=== PATIENT | male | born 1985 | race African-American/Black ===

== ENCOUNTER 2016-10-10 10:09 | Emergency (ER) | payer OTHER ==
[2016-10-10] MEDS ORDERED: Albuterol/Ipratropium 3.0-0.5 MG/3 ML Neb Soln NEB ONE (11:22)
[2016-10-10] MEDS ORDERED: methylPREDNISolone Sodium Succinate 125 MG/2 ML SDV IM ONE (11:23)
--- NOTE | 2016-10-10 11:32 | EDM.PDOC ---
<Martha Camarillo - Last Filed: 10/10/16 11:37> ED HISTORY OF PRESENT ILLNESS - General Chief Complaint: Respiratory Problem Stated Complaint: ASTHMA ATTACK ON AND OFF Time Seen by Provider: 10/10/16 10:13 - History of Present Illness INITIAL COMMENTS - FREE TEXT/NARRATIVE: This Is Dr. Camarillo dictating an addendum note as a supervising physician on this case. Agree with history and physical as above and the patient states that his asthma is usually well-controlled but he ran out of his meds and we had them he likely would not be here. He has been out of his meds for just today by his inhalers he has not had for a while. He currently has expiratory wheezing but air movement is equal in all bearden and he has no complaints of cough fever chills vomiting chest pain. We will go ahead and give him a duo neb and Solu- Medrol and send him out with an inhaler a prednisone burst and nebulizer meds. Will advise him on reasons to return to the ED Impression: Acute asthma out of medications - Related Data Allergies/ADRs: Allergies Allergy/AdvReac Type Severity Reaction Status Date / Time No Known Allergies Allergy Verified 04/20/16 12:48 Home Meds: Home Meds Albuterol Sulfate [Albuterol Sulfate HFA] 2 puff INH Q4H PRN 07/09/14 [History] Albuterol [Proventil Neb Soln] 2.5 mg NEB ASDIRECTED PRN 05/29/15 [History] Albuterol Sulfate 2.5 mg IH Q4HR PRN #30 ml 10/10/16 [Rx] Albuterol [Proventil HFA] 6.7 gm INH Q4H #1 inhaler 10/10/16 [Rx] Fluticasone/Salmeterol [Advair 250-50 Diskus] 1 each IH BID #1 disk.w.dev [Rx] Prednisone [IMW: predniSONE] 40 mg PO WITHBREAKFAST #5 tab 10/10/16 [Rx] Course - Vital Signs Last Recorded V/S: Last Vital Signs Temp 97.8 F 10/10/16 11:07 Pulse 95 10/10/16 11:07 Resp 18 10/10/16 11:07 BP 123/85 10/10/16 11:07 Pulse Ox 93 L 10/10/16 11:07 - Orders/Labs/Meds Orders: Active Orders 24 hr Category Date Time Status RT Aerosol Therapy [RC] ASDIRECTED Care 10/10/16 11:22 Active Meds: Medications Discontinued Medications Generic Name Dose Route Start Last Admin Trade Name Freq PRN Reason Stop Dose Admin Albuterol/Ipratropium 3 ml 10/10/16 11:22 10/10/16 11:44 Duoneb 3.0-0.5 Mg/3 Ml NEB 10/10/16 11:23 3 ml ONETIME ONE Administration Methylprednisolone Sodium Succinate 125 mg 10/10/16 11:23 10/10/16 11:49 Solu-Medrol IM 10/10/16 11:24 125 mg ONETIME ONE Administration Departure - Departure Disposition: Home, Self-Care 01 Clinical Impression: Acute asthma Prescriptions: Albuterol [Proventil HFA] 6.7 gm INH Q4H #1 inhaler Albuterol Sulfate 2.5 mg IH Q4HR PRN #30 ml PRN Reason: Wheezing Fluticasone/Salmeterol [Advair 250-50 Diskus] 1 each IH BID #1 disk.w.dev Prednisone [IMW: predniSONE] 40 mg PO WITHBREAKFAST #5 tab Referrals: PCP,None [Primary Care Provider] - Forms: ED Department Discharge Additional Instructions: The following information is given to patients seen in the emergency department who are being discharged to home. This information is to outline your options for follow-up care. We provide all patients seen in our emergency department with a follow-up referral. The need for follow-up, as well as the timing and circumstances, are variable depending upon the specifics of your emergency department visit. If you don't have a primary care physician on staff, we will provide you with a referral. We always advise you to contact your personal physician following an emergency department visit to inform them of the circumstance of the visit and for follow-up with them and/or the need for any referrals to a consulting specialist. The emergency department will also refer you to a specialist when appropriate. This referral assures that you have the opportunity for follow-up care with a specialist. All of these measure are taken in an effort to provide you with optimal care, which includes your follow-up. Under all circumstances we always encourage you to contact your private physician who remains a resource for coordinating your care. When calling for follow-up care, please make the office aware that this follow-up is from your recent emergency room visit. If for any reason you are refused follow-up, please contact the [facility] Emergency Department at and asked to speak to the emergency department charge nurse. - My Orders Last 24 Hours: My Active Orders 10/10/16 11:22 RT Aerosol Therapy [RC] ASDIRECTED - Assessment/Plan Last 24 Hours: My Active Orders 10/10/16 11:22 RT Aerosol Therapy [RC] ASDIRECTED <Elvia Schneider - Last Filed: 10/10/16 12:00> ED HISTORY OF PRESENT ILLNESS - History of Present Illness INITIAL COMMENTS - FREE TEXT/NARRATIVE: History of present illness: [31 yo male with history of asthma presents to ED with sob and wheezing. He ran out his medications today. He used his last nebulizer this morning and he still felt sob. His medications include proventil, advair. He has mild congestion but denies fever, chills, sorethroat, productve cought, chest pain, palpitations or other symptoms.] Review of systems: As per history of present illness and below otherwise all systems reviewed and negative. Past medical history: As per history of present illness and as reviewed below otherwise noncontributory. Surgical history: As per history of present illness and as reviewed below otherwise noncontributory. Social history: No reported history of drug or alcohol abuse. Family history: As per history of present illness and as reviewed below otherwise noncontributory. Physical exam: General: Well developed, well nourished in NAD HEENT: Atraumatic, normocephalic, pupils reactive, negative for conjunctival pallor or scleral icterus, mucous membranes moist, throat clear, neck supple, nontender, trachea midline. Lungs: Expiratory wheezing. breath sounds equal bilaterally, chest nontender. Heart: S1S2, regular, negative for clicks, rubs, or JVD. Abdomen: Soft, nondistended, nontender. Negative for masses or hepatosplenomegaly. Negative for costovertebral tenderness. Pelvis: Stable nontender. Genitourinary: Deferred. Rectal: Deferred. Extremities: Atraumatic, negative for cords or calf pain. Neurovascular unremarkable. Neuro: Awake, alert, oriented. Cranial nerves II through XII unremarkable. Cerebellum unremarkable. Motor and sensory unremarkable throughout. Exam nonfocal. Diagnostics: [] Therapeutics: [Solu-Medrol IM 1.5, DuoNeb x1 ] Impression: [Acute exacerbation of asthma] Plan: [Rx Ventolin inhaler, albuterol solution for nebulizer, Advair, prednisone 40 mg x5 days Follow with primary care] Definitive disposition and diagnosis as appropriate pending reevaluation and review of above. Past Medical History Respiratory History: Reports: Asthma - Infectious Disease History Infectious Disease History: Reports: Chicken pox, Influenza Social & Family History - Family History Family Medical History: Noncontributory - Tobacco Use Smoking Status *Q: Former Smoker Years of Tobacco use: 10 Packs/Tins Daily: 0.5 Used Tobacco, but Quit: Yes Month Tobacco Last Used: 04/2016 Second Hand Smoke Exposure: No - Caffeine Use Caffeine Use: Reports: Coffee Caffeine Use Comment: 2 bottles - Alcohol Use Days Per Week of Alcohol Use: 1 Number of Drinks Per Day: 0 Total Drinks Per Week: 0 - Recreational Drug Use Recreational Drug Use: No ED ROS GENERAL - Review of Systems Review Of Systems: See Below (See history of present illness) ED EXAM, GENERAL - Physical Exam Exam: See Below (See history of present illness) Departure - Departure Time of Disposition: 12:00 Condition: good
[2016-10-10 12:12] VITALS: BP 132/70
== END 2016-10-10 12:09 | disposition home or self-care (01) ==
LOC: MW.ED 10:09
DX: J45.901 Unspecified asthma with (acute) exacerbation (principal); Z87.891 Personal history of nicotine dependence; Z79.899 Other long term (current) drug therapy
CPT/HCPCS: 94664; 96372; 99284; J2930

== ENCOUNTER 2017-01-20 12:01 | Emergency (ER) | payer OTHER ==
--- NOTE | 2017-01-20 12:31 | EDM.PDOC ---
ED HPI GENERAL MEDICAL PROBLEM - General Chief Complaint: Skin Complaint Stated Complaint: RIGHT HAND CHEMICAL REACTION Time Seen by Provider: 01/20/17 12:26 Source of Information: Reports: Patient History Limitations: Reports: No Limitations - History of Present Illness INITIAL COMMENTS - FREE TEXT/NARRATIVE: History of present illness: 32-year-old male presenting with acute onset of dermatitis on hands and wrists. 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 Comes today seeking antibiotics and steroids to help resolve this issue. Review of systems: As per history of present illness and below otherwise all systems reviewed and negative. Past medical history: As per history of present illness and as reviewed below otherwise noncontributory. Surgical history: As per history of present illness and as reviewed below otherwise noncontributory. Social history: No reported history of drug or alcohol abuse. Family history: As per history of present illness and as reviewed below otherwise noncontributory. Physical exam: HEENT: Atraumatic, normocephalic, pupils reactive, negative for conjunctival pallor or scleral icterus, mucous membranes moist, throat clear, neck supple, nontender, trachea midline. Lungs: Clear to auscultation, breath sounds equal bilaterally, chest nontender. Heart: S1S2, regular, negative for clicks, rubs, or JVD. Abdomen: Soft, nondistended, nontender. Negative for masses or hepatosplenomegaly. Negative for costovertebral tenderness. Pelvis: Stable nontender. Genitourinary: Deferred. Rectal: Deferred. Extremities: Atraumatic, negative for cords or calf pain. Neurovascular unremarkable. Neuro: Awake, alert, oriented. Cranial nerves II through XII unremarkable. Cerebellum unremarkable. Motor and sensory unremarkable throughout. Exam nonfocal. Skin: Bilateral hands and right wrist with plaquing eczema type lesions that are open with some amount of serous drainage with no star signs of infection. Diagnostics: [] Therapeutics: [] Impression: [Dermatitis, eczema] Plan: [Antibiotics, steroids] Definitive disposition and diagnosis as appropriate pending reevaluation and review of above. - Related Data Allergies Allergy/AdvReac Type Severity Reaction Status Date / Time No Known Allergies Allergy Verified 01/20/17 12:15 Home Meds: Home Meds Albuterol Sulfate [Albuterol Sulfate HFA] 2 puff INH Q4H PRN 07/09/14 [History] Albuterol [Proventil Neb Soln] 2.5 mg NEB ASDIRECTED PRN 05/29/15 [History] Albuterol Sulfate 2.5 mg IH Q4HR PRN #30 ml 10/10/16 [Rx] Albuterol [Proventil HFA] 6.7 gm INH Q4H #1 inhaler 10/10/16 [Rx] Fluticasone/Salmeterol [Advair 250-50 Diskus] 1 each IH BID #1 disk.w.dev [Rx] Prednisone [IMW: predniSONE] 40 mg PO WITHBREAKFAST #5 tab 10/10/16 [Rx] Cephalexin [Keflex] 500 mg PO QID #40 capsule 01/20/17 [Rx] Meloxicam 7.5 mg PO BID #30 tablet 01/20/17 [Rx] methylPREDNISolone [Medrol] 4 mg PO DAILY #21 tab.ds.pk 01/20/17 [Rx] Past Medical History HEENT History: Reports: None Cardiovascular History: Reports: None Respiratory History: Reports: Asthma Gastrointestinal History: Reports: None Genitourinary History: Reports: None Psychiatric History: Reports: None Dermatologic History: Reports: None - Infectious Disease History Infectious Disease History: Reports: Chicken Pox - Past Surgical History HEENT Surgical History: Reports: None Cardiovascular Surgical History: Reports: None Dermatological Surgical History: Reports: None Social & Family History - Family History Family Medical History: Noncontributory - Tobacco Use Smoking Status *Q: Never Smoker Years of Tobacco use: 10 Packs/Tins Daily: 0.5 Used Tobacco, but Quit: Yes Month Tobacco Last Used: 04/2016 Second Hand Smoke Exposure: No - Caffeine Use Caffeine Use: Reports: Coffee Caffeine Use Comment: 2 bottles - Alcohol Use Days Per Week of Alcohol Use: 1 Number of Drinks Per Day: 0 Total Drinks Per Week: 0 - Recreational Drug Use Recreational Drug Use: No ED ROS GENERAL - Review of Systems Review Of Systems: See Below (The history of present illness) ED EXAM, SKIN/RASH Exam: See Below (History of present illness) Course - Vital Signs Last Recorded V/S: Last Vital Signs Temp 36.4 C 01/20/17 12:15 Pulse 100 01/20/17 12:15 Resp 16 01/20/17 12:15 BP 130/59 L 01/20/17 12:15 Pulse Ox 99 01/20/17 12:15 Departure - Departure Time of Disposition: 12:28 Disposition: Home, Self-Care 01 Condition: Good Clinical Impression: Contact dermatitis, Psoriasis - Discharge Information Instructions: Contact Dermatitis, [id number], Psoriasis, [id number] Forms: ED Department Discharge Additional Instructions: The following information is given to patients seen in the emergency department who are being discharged to home. This information is to outline your options for follow-up care. We provide all patients seen in our emergency department with a follow-up referral. The need for follow-up, as well as the timing and circumstances, are variable depending upon the specifics of your emergency department visit. If you don't have a primary care physician on staff, we will provide you with a referral. We always advise you to contact your personal physician following an emergency department visit to inform them of the circumstance of the visit and for follow-up with them and/or the need for any referrals to a consulting specialist. The emergency department will also refer you to a specialist when appropriate. This referral assures that you have the opportunity for follow-up care with a specialist. All of these measure are taken in an effort to provide you with optimal care, which includes your follow-up. Under all circumstances we always encourage you to contact your private physician who remains a resource for coordinating your care. When calling for follow-up care, please make the office aware that this follow-up is from your recent emergency room visit. If for any reason you are refused follow-up, please contact the [facility] Emergency Department at and asked to speak to the emergency department charge nurse. Take medication as directed Follow-up with PCP 1-2 days Return to ED as needed as discussed [facility] [address] [place] [id number]
== END 2017-01-20 12:55 | disposition home or self-care (01) ==
LOC: MW.ED 12:01
CPT/HCPCS: 99282; 99283

== ENCOUNTER 2017-04-02 17:50 | Emergency (ER) | payer OTHER ==
[2017-04-02] MEDS ORDERED: Albuterol/Ipratropium 3.0-0.5 MG/3 ML Neb Soln NEB ONE (17:59)
[2017-04-02] MEDS ORDERED: methylPREDNISolone Sodium Succinate 125 MG/2 ML SDV IM ONE (17:59)
[2017-04-02] MEDS ORDERED: Albuterol/Ipratropium 3.0-0.5 MG/3 ML Neb Soln ONE (18:01)
--- NOTE | 2017-04-02 18:04 | EDM.PDOC ---
ED HPI GENERAL MEDICAL PROBLEM - General Chief Complaint: Respiratory Problem Stated Complaint: TROUBLE BREATH, LATONYA Time Seen by Provider: 04/02/17 17:52 - History of Present Illness INITIAL COMMENTS - FREE TEXT/NARRATIVE: HISTORY AND PHYSICAL: History of present illness: The patient is a 32-year-old male with a known history of asthma who has an inhaler and says that over the last few days with the amount of smoke and environmental pollutants in our area his asthma has flared up. He says that he also has exposures at work that can cause his asthma to flare up. He has an inhaler that he has been using more than usual and says that it was not helping so he came here for therapy. He knows that he needs the steroids and he has used them in the past. He does have a cough with this shortness of breath and wheezing but it is clear. He has not had fevers chills chest pain abdominal pain vomiting or diarrhea. He has no other upper respiratory symptoms. He has a nebulizer machine at home but is not functioning very well and sees been using his inhaler more. The patient still smokes cigarettes but has cut back and he denies drug use. The patient also states he has not been hydrating very well and has been drinking mostly caffeinated products Review of systems: As per history of present illness and below otherwise all systems reviewed and negative. Past medical history: As per history of present illness and as reviewed below otherwise noncontributory. Surgical history: As per history of present illness and as reviewed below otherwise noncontributory. Social history: No reported history of drug or alcohol abuse. Family history: As per history of present illness and as reviewed below otherwise noncontributory. Physical exam: Gen.: Well-developed well-nourished man who is speaking clearly and easily in the ED and is in no respiratory distress. He has some slight audible wheezing. O2 sat on room air on arrival was 90-93%. HEENT: Atraumatic, normocephalic, negative for conjunctival pallor or scleral icterus, mucous membranes moist, throat clear, neck supple, nontender, trachea midline. Lungs: The patient has tight air exchange but is moving air in all bearden and he has both inspiratory and expiratory wheezing, there is no sensory muscle use and no stridor, breath sounds equal bilaterally, chest nontender. Heart: S1S2, regular rhythm and slightly tachycardic rate on my evaluation Abdomen: Soft, nondistended, nontender. NABS Skin: Normal turgor no evidence of any diaphoresis Genitourinary: Deferred. Rectal: Deferred. Extremities: Atraumatic, negative for cords or calf pain. Neurovascular unremarkable. Neuro: Awake, alert, oriented. Cranial nerves II through XII unremarkable. Cerebellum unremarkable. Motor and sensory unremarkable throughout. Exam nonfocal. Diagnostics: Therapeutics: Duo neb Solu-Medrol After the DuoNeb patient is significantly improved with only minimal expiratory wheeze on the left and great air exchange and the patient overall feels better. His room air O2 sat after the nebulizer treatment is 99%. I advised the patient I will give him a Ventolin inhaler as well as a prednisone prescription and advised him to push hydration please follow-up in the clinic and avoid tobacco use. Impression: Acute asthma exacerbation improved Definitive disposition and diagnosis as appropriate pending reevaluation and review of above. - Related Data Allergies Allergy/AdvReac Type Severity Reaction Status Date / Time No Known Allergies Allergy Verified 04/02/17 17:52 Home Meds: Home Meds Albuterol [Proventil HFA] 6.7 gm INH DAILY 04/02/17 [History] Past Medical History HEENT History: Reports: None Cardiovascular History: Reports: None Respiratory History: Reports: Asthma Gastrointestinal History: Reports: None Genitourinary History: Reports: None Musculoskeletal History: Reports: None Neurological History: Reports: None Psychiatric History: Reports: None Endocrine/Metabolic History: Reports: None Hematologic History: Reports: None Immunologic History: Reports: None Oncologic (Cancer) History: Reports: None Dermatologic History: Reports: None - Past Surgical History Head Surgeries/Procedures: Reports: None HEENT Surgical History: Reports: None Cardiovascular Surgical History: Reports: None Respiratory Surgical History: Reports: None GI Surgical History: Reports: None Male Surgical History: Reports: None Endocrine Surgical History: Reports: None Neurological Surgical History: Reports: None Musculoskeletal Surgical History: Reports: None Oncologic Surgical History: Reports: None Social & Family History - Family History Family Medical History: Noncontributory - Tobacco Use Smoking Status *Q: Light Tobacco Smoker Years of Tobacco use: 3 Packs/Tins Daily: 0.2 - Caffeine Use Caffeine Use: Reports: None - Recreational Drug Use Recreational Drug Use: No ED ROS GENERAL - Review of Systems Review Of Systems: ROS reveals no pertinent complaints other than HPI. ED EXAM, GENERAL - Physical Exam Exam: See Below (See dictation) Course - Vital Signs Last Recorded V/S: Last Vital Signs Temp 36.4 C 04/02/17 17:53 Pulse 95 04/02/17 17:53 Resp 18 04/02/17 17:53 BP 143/87 H 04/02/17 17:53 Pulse Ox 95 04/02/17 17:53 - Orders/Labs/Meds Orders: Active Orders 24 hr Category Date Time Status RT Aerosol Therapy [RC] ASDIRECTED Care 04/02/17 18:00 Active Meds: Medications Discontinued Medications Generic Name Dose Route Start Last Admin Trade Name [place] PRN Reason Stop Dose Admin Albuterol/Ipratropium 3 ml 04/02/17 17:59 04/02/17 18:05 Duoneb 3.0-0.5 Mg/3 Ml NEB 04/02/17 18:00 3 ml ONETIME ONE Administration Albuterol/Ipratropium Confirm 04/02/17 18:01 04/02/17 18:06 Duoneb 3.0-0.5 Mg/3 Ml Administered 04/02/17 18:02 Not Given Dose 3 ml .ROUTE .STK-MED ONE Methylprednisolone Sodium Succinate 125 mg 04/02/17 17:59 04/02/17 18:14 Solu-Medrol IM 04/02/17 18:00 125 mg ONETIME ONE Administration Departure - Departure Time of Disposition: 18:40 Disposition: Home, Self-Care 01 Condition: Good Clinical Impression: Acute asthma exacerbation Qualifiers: Asthma severity: mild persistent Qualified Code(s): J45.31 - Mild persistent asthma with (acute) exacerbation - Discharge Information Forms: ED Department Discharge Additional Instructions: The following information is given to patients seen in the emergency department who are being discharged to home. This information is to outline your options for follow-up care. We provide all patients seen in our emergency department with a follow-up referral. The need for follow-up, as well as the timing and circumstances, are variable depending upon the specifics of your emergency department visit. If you don't have a primary care physician on staff, we will provide you with a referral. We always advise you to contact your personal physician following an emergency department visit to inform them of the circumstance of the visit and for follow-up with them and/or the need for any referrals to a consulting specialist. The emergency department will also refer you to a specialist when appropriate. This referral assures that you have the opportunity for followup care with a specialist. All of these measure are taken in an effort to provide you with optimal care, which includes your followup. Under all circumstances we always encourage you to contact your private physician who remains a resource for coordinating your care. When calling for followup care, please make the office aware that this follow-up is from your recent emergency room visit. If for any reason you are refused follow-up, please contact the [facility] emergency department at and ask to speak to the emergency department charge nurse. [facility] Primary care- Internal Medicine and Family [address] [id number] Please push hydration and avoid caffeinated products and try to stop smoking. Please fill prescriptions and use your inhaler 1-2 puffs every 6 hours for the next 2 days and then when necessary as needed. Please take prednisone as directed. Please call and follow-up with one of our clinic providers in the next few days and return to ER as needed and as discussed. Please try to expose exposure to environmental triggers - My Orders Last 24 Hours: My Active Orders 04/02/17 18:00 RT Aerosol Therapy [RC] ASDIRECTED - Assessment/Plan Last 24 Hours: My Active Orders 04/02/17 18:00 RT Aerosol Therapy [RC] ASDIRECTED
[2017-04-02 18:58] VITALS: BP 126/77
== END 2017-04-02 18:50 | disposition home or self-care (01) ==
LOC: MERGE 17:50 → MW.ED 17:50
DX: J45.31 Mild persistent asthma with (acute) exacerbation (principal); F17.210 Nicotine dependence, cigarettes, uncomplicated; Z79.899 Other long term (current) drug therapy
CPT/HCPCS: 96372; 99284; J2930; 99283

== ENCOUNTER 2017-08-05 11:03 | Emergency (ER) | payer BC, OTHER ==
[2017-08-05] MEDS ORDERED: Albuterol/Ipratropium 3.0-0.5 MG/3 ML Neb Soln NEB ONE (12:00)
[2017-08-05] MEDS ORDERED: Acetaminophen 325 MG Tab PO ONE (12:00)
--- NOTE | 2017-08-05 12:04 | EDM.PDOC ---
ED HPI GENERAL MEDICAL PROBLEM - General Chief Complaint: Respiratory Problem Stated Complaint: ASTHMA ISSUES Time Seen by Provider: 08/05/17 11:05 Source of Information: Reports: Patient History Limitations: Reports: No Limitations - History of Present Illness INITIAL COMMENTS - FREE TEXT/NARRATIVE: HISTORY AND PHYSICAL: History of present illness: Patient is a 32-year-old male who presents to the emergency room today with complaints of cough, shortness of breath, fever and chills 2-3 days. He states that the symptoms have progressively got worse and he did miss work yesterday and today due to this. He says "I don't think it's the flu because my body does not hurt and I don't feel run down". Has not received the [id number] influenza vaccine. She does have a history of asthma which he was taking a rescue inhaler for these symptoms. He states he has been out for "some time". And has not been taking anything for this. Denies any headache, chest pain, abdominal pain, nausea, vomiting or diarrhea. Has been eating and drinking appropriately. No urinary or bowel changes or complaints. Review of systems: As per history of present illness and below otherwise all systems reviewed and negative. Past medical history: As per history of present illness and as reviewed below otherwise noncontributory. Surgical history: As per history of present illness and as reviewed below otherwise noncontributory. Social history: No reported history of drug or alcohol abuse. Family history: As per history of present illness and as reviewed below otherwise noncontributory. Physical exam: General: 32-year-old -[place] male. Alert and oriented. Nontoxic appearing. Appears in no acute distress. HEENT: Atraumatic, normocephalic, pupils reactive, negative for conjunctival pallor or scleral icterus, mucous membranes moist, throat clear, neck supple, nontender, trachea midline. Lungs: Clear/diminished to auscultation, breath sounds equal bilaterally, chest nontender. Dry cough noted Heart: S1S2, regular rate and rhythm with no heart murmurs Abdomen: Soft, nondistended, nontender. Negative for masses or hepatosplenomegaly. Negative for costovertebral tenderness. Pelvis: Stable nontender. Genitourinary: Deferred. Rectal: Deferred. Extremities: Atraumatic, moves all extremities per self without difficulty or deficit. Neurovascular unremarkable. Neuro: Awake, alert, oriented. Cranial nerves II through XII unremarkable. Cerebellum unremarkable. Motor and sensory unremarkable throughout. Exam nonfocal. Influenza screen was negative. There was no significant findings on the chest x- ray and he has no wheezing. Due to history of asthma and fevers that will treat with azithromycin as an atypical pneumonia vs asthma exacerbation. Medrol Dosepak has been given as well. And a refill of his Proventil inhaler. Patient voices understanding and is agreeable to plan of care. He denies any further questions at this time. Diagnostics: Influenza, chest x-ray Therapeutics: DuoNeb, Tylenol Impression: Bronchitis Asthma exacerbation Plan: 1. Please take the antibiotic as prescribed. A Medrol Dosepak, steroid, has been prescribed as well. A refill on your inhaler has been given as well. These are waiting at [facility] for [place]. 2. Continue to drink plenty of fluids. Tylenol and/or ibuprofen as needed for pain and fever management. Plenty of rest. 3. Follow up with her primary caregiver in the next 1-2 days. Return to the ED as needed and as discussed. Definitive disposition and diagnosis as appropriate pending reevaluation and review of above. Duration: Day(s): Location: Reports: Chest - Related Data Allergies Allergy/AdvReac Type Severity Reaction Status Date / Time No Known Allergies Allergy Verified 01/20/17 12:15 Home Meds: Home Meds Albuterol Sulfate [Albuterol Sulfate HFA] 2 puff INH Q4H PRN 07/09/14 [History] Albuterol [Proventil HFA] 6.7 gm INH Q4H #1 inhaler 10/10/16 [Rx] Albuterol [Proventil HFA] 2 puff INH Q4H PRN #1 inhaler 08/05/17 [Rx] Azithromycin [IJD: Azithromycin] 250 mg PO DAILY #6 tab 08/05/17 [Rx] methylPREDNISolone [Medrol] 4 mg PO DAILY #1 tab.ds.pk 08/05/17 [Rx] Past Medical History HEENT History: Reports: None Cardiovascular History: Reports: None Respiratory History: Reports: Asthma Gastrointestinal History: Reports: None Genitourinary History: Reports: None Musculoskeletal History: Reports: None Neurological History: Reports: None Psychiatric History: Reports: None Endocrine/Metabolic History: Reports: None Hematologic History: Reports: None Immunologic History: Reports: None Oncologic (Cancer) History: Reports: None Dermatologic History: Reports: None - Infectious Disease History Infectious Disease History: Reports: Chicken Pox - Past Surgical History Head Surgeries/Procedures: Reports: None HEENT Surgical History: Reports: None Cardiovascular Surgical History: Reports: None Respiratory Surgical History: Reports: None GI Surgical History: Reports: None Male Surgical History: Reports: None Endocrine Surgical History: Reports: None Neurological Surgical History: Reports: None Musculoskeletal Surgical History: Reports: None Oncologic Surgical History: Reports: None Social & Family History - Family History Family Medical History: Noncontributory - Tobacco Use Smoking Status *Q: Never Smoker Years of Tobacco use: 3 Packs/Tins Daily: 0.2 Used Tobacco, but Quit: Yes Month Tobacco Last Used: 04/2016 Second Hand Smoke Exposure: No - Caffeine Use Caffeine Use: Reports: Coffee, Energy Drinks, Soda, Tea Caffeine Use Comment: 2 bottles - Alcohol Use Days Per Week of Alcohol Use: 1 Number of Drinks Per Day: 0 Total Drinks Per Week: 0 - Recreational Drug Use Recreational Drug Use: No ED ROS GENERAL - Review of Systems Review Of Systems: ROS reveals no pertinent complaints other than HPI. ED EXAM, GENERAL - Physical Exam Exam: See Below (See dictation) Course - Vital Signs Last Recorded V/S: Last Vital Signs Temp 99.9 F 08/05/17 11:13 Pulse 102 H 08/05/17 11:13 Resp 20 08/05/17 11:13 BP 116/74 08/05/17 11:13 Pulse Ox 95 08/05/17 11:13 - Orders/Labs/Meds Orders: Active Orders 24 hr Category Date Time Status RT Aerosol Therapy [RC] ASDIRECTED Care 08/05/17 12:00 Active Meds: Medications Discontinued Medications Generic Name Dose Route Start Last Admin Trade Name Freq PRN Reason Stop Dose Admin Acetaminophen 650 mg 08/05/17 12:00 08/05/17 12:07 Tylenol PO 08/05/17 12:01 650 mg NOW ONE Administration Albuterol/Ipratropium 3 ml 08/05/17 12:00 08/05/17 12:25 Duoneb 3.0-0.5 Mg/3 Ml NEB 08/05/17 12:01 3 ml ONETIME ONE Administration Departure - Departure Time of Disposition: 12:51 Disposition: Home, Self-Care 01 Clinical Impression: Bronchitis Acute asthma exacerbation Qualifiers: Asthma severity: mild persistent Qualified Code(s): J45.31 - Mild persistent asthma with (acute) exacerbation - Discharge Information Prescriptions: Albuterol [Proventil HFA] 2 puff INH Q4H PRN #1 inhaler PRN Reason: Dyspnea Azithromycin [IJD: Azithromycin] 250 mg PO DAILY #6 tab methylPREDNISolone [Medrol] 4 mg PO DAILY #1 tab.ds.pk Referrals: PCP,None [Primary Care Provider] - Forms: ED Department Discharge Additional Instructions: My general discharge The following information is given to patients seen in the emergency department who are being discharged to home. This information is to outline your options for follow-up care. We provide all patients seen in our emergency department with a follow-up referral. The need for follow-up, as well as the timing and circumstances, are variable depending upon the specifics of your emergency department visit. If you don't have a primary care physician on staff, we will provide you with a referral. We always advise you to contact your personal physician following an emergency department visit to inform them of the circumstance of the visit and for follow-up with them and/or the need for any referrals to a consulting specialist. The emergency department will also refer you to a specialist when appropriate. This referral assures that you have the opportunity for follow-up care with a specialist. All of these measure are taken in an effort to provide you with optimal care, which includes your follow-up. Under all circumstances we always encourage you to contact your private physician who remains a resource for coordinating your care. When calling for follow-up care, please make the office aware that this follow-up is from your recent emergency room visit. If for any reason you are refused follow-up, please contact the [facility] Emergency Department at and asked to speak to the emergency department charge nurse. [facility] [address] [place] [phone] 1. Please take the antibiotic as prescribed. A Medrol Dosepak, steroid, has been prescribed as well. A refill on your inhaler has been given as well. These are waiting at [place] [facility] for pickup. 2. Continue to drink plenty of fluids. Tylenol and/or ibuprofen as needed for pain and fever management. Plenty of rest. 3. Follow up with her primary caregiver in the next 1-2 days. Return to the ED as needed and as discussed. - My Orders Last 24 Hours: My Active Orders 08/05/17 12:00 RT Aerosol Therapy [RC] ASDIRECTED - Assessment/Plan Last 24 Hours: My Active Orders 08/05/17 12:00 RT Aerosol Therapy [RC] ASDIRECTED
--- NOTE | 2017-08-05 12:42 | CR ---
EXAMINATION: Two-view chest (PA and Lateral views). HISTORY: Shortness of breath. FINDINGS: The trachea is midline. The cardiomediastinal silhouette is within normal limits. No pulmonary infilt rates, effusions or pneumothorax. There is mild hyperinflation. Osseous structures appear unremarkable. IMPRESSION: No acute cardiopulmonary process.
[2017-08-05 18:23] VITALS: BP 126/64
== END 2017-08-05 13:07 | disposition home or self-care (01) ==
LOC: MW.ED 11:03
DX: J45.31 Mild persistent asthma with (acute) exacerbation (principal); J40 Bronchitis, not specified as acute or chronic; Z79.899 Other long term (current) drug therapy; Z87.891 Personal history of nicotine dependence
CPT/HCPCS: 71046; 87804; 94640; 99285; A9270; 99284

== ENCOUNTER 2017-09-18 07:54 | Emergency (ER) | payer BC ==
[2017-09-18] MEDS ORDERED: predniSONE 20 MG Tab PO ONE (08:14)
[2017-09-18] MEDS ORDERED: Albuterol/Ipratropium 3.0-0.5 MG/3 ML Neb Soln NEB ONE (08:14)
--- NOTE | 2017-09-18 08:18 | EDM.PDOC ---
ED HPI GENERAL MEDICAL PROBLEM - General Chief Complaint: Respiratory Problem Stated Complaint: ASTHMA Time Seen by Provider: 09/18/17 08:09 - History of Present Illness INITIAL COMMENTS - FREE TEXT/NARRATIVE: HISTORY AND PHYSICAL: History of present illness: The patient is a 32-year-old male with a known history of asthma who presents with 2 days of chest tightness and asthma-like symptoms including a dry cough and feeling like he is wheezing. The patient was seen here August 05 for similar symptoms but at that time had more cold symptoms and had a negative influenza and a negative chest x-ray. Patient did not get influenza vaccine this year. On the August 05 visit he was prescribed a Medrol Dosepak as well as an inhaler refill as he did not have an inhaler to use at home. He tells me today that he has a nebulizer machine at home and does have medication for it but is only been using it at bedtime. He has not been on any regular dosing and has not increased using the nebulizer since these symptoms have worsened. He denies that he smokes but admitted to me that he is around second hand smoke. He is eating and drinking normally and has no abdominal pain no specific area of chest pain no back pain no sore throat runny nose. He has taken Mucinex over- the-counter because he thought this might have but not because he specifically having a productive cough. He says this feels like his asthma and that he needs steroids. The patient states he did not follow-up in the clinic after his last ER visit. Review of systems: As per history of present illness and below otherwise all systems reviewed and negative. Past medical history: As per history of present illness and as reviewed below otherwise noncontributory. Surgical history: As per history of present illness and as reviewed below otherwise noncontributory. Social history: No reported history of drug or alcohol abuse. Family history: As per history of present illness and as reviewed below otherwise noncontributory. Physical exam: General: Well-developed well-nourished man who is nontoxic and vital signs of an reviewed by me. He speaking clearly and easily without breathlessness or nasal quality to voice. He does have a smell of cigarette smoke on his clothing. HEENT: Atraumatic, normocephalic, pupils reactive, negative for conjunctival pallor or scleral icterus, mucous membranes moist, throat clear, neck supple, nontender, trachea midline. Lungs: Clear to auscultation with some diminished breath sounds in the bases and some coarse breath sounds scattered but no overt wheezing or work of breathing, breath sounds equal bilaterally, chest nontender. Heart: S1S2, regular rate and rhythm no overt murmurs Abdomen: Soft, nondistended, nontender NABS Pelvis: Deferred Genitourinary: Deferred. Rectal: Deferred. Extremities: Atraumatic, negative for cords or calf pain. Neurovascular unremarkable. Neuro: Awake, alert, oriented. Cranial nerves II through XII unremarkable. Cerebellum unremarkable. Motor and sensory unremarkable throughout. Exam nonfocal. Diagnostics: None Therapeutics: Duo neb and prednisone Rpt Sat 94% Impression: Asthma exacerbation Definitive disposition and diagnosis as appropriate pending reevaluation and review of above. - Related Data Allergies Allergy/AdvReac Type Severity Reaction Status Date / Time No Known Allergies Allergy Verified 09/18/17 08:02 Home Meds: Home Meds Albuterol Sulfate [Albuterol Sulfate HFA] 2 puff NEB Q4H PRN 07/09/14 [History] Albuterol [Proventil HFA] 2 puff INH Q4H PRN #1 inhaler 08/05/17 [Rx] Past Medical History HEENT History: Reports: None Cardiovascular History: Reports: None Respiratory History: Reports: Asthma Gastrointestinal History: Reports: None Genitourinary History: Reports: None Musculoskeletal History: Reports: None Neurological History: Reports: None Psychiatric History: Reports: None Endocrine/Metabolic History: Reports: None Hematologic History: Reports: None Immunologic History: Reports: None Oncologic (Cancer) History: Reports: None Dermatologic History: Reports: None - Infectious Disease History Infectious Disease History: Reports: Chicken Pox - Past Surgical History Head Surgeries/Procedures: Reports: None HEENT Surgical History: Reports: None Cardiovascular Surgical History: Reports: None Respiratory Surgical History: Reports: None GI Surgical History: Reports: None Male Surgical History: Reports: None Endocrine Surgical History: Reports: None Neurological Surgical History: Reports: None Musculoskeletal Surgical History: Reports: None Oncologic Surgical History: Reports: None Social & Family History - Family History Family Medical History: Noncontributory - Tobacco Use Smoking Status *Q: Never Smoker Years of Tobacco use: 3 Packs/Tins Daily: 0.2 Used Tobacco, but Quit: Yes Month Tobacco Last Used: 04/2016 Second Hand Smoke Exposure: No - Caffeine Use Caffeine Use: Reports: Coffee, Energy Drinks, Soda, Tea Caffeine Use Comment: 2 bottles - Alcohol Use Days Per Week of Alcohol Use: 1 Number of Drinks Per Day: 0 Total Drinks Per Week: 0 - Recreational Drug Use Recreational Drug Use: No ED ROS GENERAL - Review of Systems Review Of Systems: ROS reveals no pertinent complaints other than HPI. ED EXAM, GENERAL - Physical Exam Exam: See Below (See dictation) Course - Vital Signs Last Recorded V/S: Last Vital Signs Temp 37.7 C 09/18/17 08:02 Pulse 103 H 09/18/17 08:02 Resp 16 09/18/17 08:02 BP 131/65 09/18/17 08:02 Pulse Ox 93 L 09/18/17 08:02 - Orders/Labs/Meds Orders: Active Orders 24 hr Category Date Time Status RT Aerosol Therapy [RC] ASDIRECTED Care 09/18/17 08:14 Active Meds: Medications Discontinued Medications Generic Name Dose Route Start Last Admin Trade Name Benigno PRN Reason Stop Dose Admin Albuterol/Ipratropium 3 ml 09/18/17 08:14 09/18/17 08:18 Duoneb 3.0-0.5 Mg/3 Ml NEB 09/18/17 08:15 3 ml ONETIME ONE Administration Prednisone 40 mg 09/18/17 08:14 09/18/17 08:18 Prednisone PO 09/18/17 08:15 40 mg ONETIME ONE Administration Departure - Departure Time of Disposition: 08:33 Disposition: Home, Self-Care 01 Condition: Good Clinical Impression: Asthma exacerbation Qualifiers: Asthma severity: mild Asthma persistence: intermittent Qualified Code(s): J45.21 - Mild intermittent asthma with (acute) exacerbation - Discharge Information Referrals: PCP,None [Primary Care Provider] - Forms: ED Department Discharge Additional Instructions: The following information is given to patients seen in the emergency department who are being discharged to home. This information is to outline your options for follow-up care. We provide all patients seen in our emergency department with a follow-up referral. The need for follow-up, as well as the timing and circumstances, are variable depending upon the specifics of your emergency department visit. If you don't have a primary care physician on staff, we will provide you with a referral. We always advise you to contact your personal physician following an emergency department visit to inform them of the circumstance of the visit and for follow-up with them and/or the need for any referrals to a consulting specialist. The emergency department will also refer you to a specialist when appropriate. This referral assures that you have the opportunity for followup care with a specialist. All of these measure are taken in an effort to provide you with optimal care, which includes your followup. Under all circumstances we always encourage you to contact your private physician who remains a resource for coordinating your care. When calling for followup care, please make the office aware that this follow-up is from your recent emergency room visit. If for any reason you are refused follow-up, please contact the [facility] emergency department at and ask to speak to the emergency department charge nurse. [facility]- [place] [address] Push hydration and use her nebulizer machine and give yourself a treatment every 6 hours for the next 2 days to help break the cycle of your asthma. Then we give yourself a nebulizer treatment as needed every 6-8 hours. Use your inhaler when you do not have access to the nebulizer machine. Please take steroids as prescribed and use [id number] medications as you choose. Please call and follow-up in our clinic as you need follow-up for your asthma. Return to ER as needed and as discussed. - My Orders Last 24 Hours: My Active Orders 09/18/17 08:14 RT Aerosol Therapy [RC] ASDIRECTED - Assessment/Plan Last 24 Hours: My Active Orders 09/18/17 08:14 RT Aerosol Therapy [RC] ASDIRECTED
[2017-09-18 08:46] VITALS: BP 117/77
== END 2017-09-18 08:42 | disposition home or self-care (01) ==
LOC: MW.ED 07:54
DX: J45.21 Mild intermittent asthma with (acute) exacerbation (principal); Z87.891 Personal history of nicotine dependence
CPT/HCPCS: 94640; 99284; A9270; 99283

== ENCOUNTER 2017-10-26 12:16 | Emergency (ER) | payer BC ==
--- NOTE | 2017-10-26 12:40 | EDM.PDOC ---
ED HPI GENERAL MEDICAL PROBLEM - General Chief Complaint: Skin Complaint Stated Complaint: R ARM PAIN Time Seen by Provider: 10/26/17 12:38 Source of Information: Reports: Patient History Limitations: Reports: No Limitations - History of Present Illness INITIAL COMMENTS - FREE TEXT/NARRATIVE: History of present illness: []Patient's had 3-4 year history of insomnia skin that are very itchy dry and cracking. He does have a history of eczema but this feels different to him. He has been seen here several times with multiple diagnoses and varying treatments. He does not follow up with primary care. Review of systems: As per history of present illness and below otherwise all systems reviewed and negative. Past medical history: As per history of present illness and as reviewed below otherwise noncontributory. Surgical history: As per history of present illness and as reviewed below otherwise noncontributory. Social history: No reported history of drug or alcohol abuse. Family history: As per history of present illness and as reviewed below otherwise noncontributory. Physical exam: General: Well developed, well nourished in NAD HEENT: Atraumatic, normocephalic, pupils reactive, negative for conjunctival pallor or scleral icterus, mucous membranes moist, throat clear, neck supple, nontender, trachea midline. Lungs: Clear to auscultation, breath sounds equal bilaterally, chest nontender. Heart: S1S2, regular, negative for clicks, rubs, or JVD. Abdomen: Soft, nondistended, nontender. Negative for masses or hepatosplenomegaly. Negative for costovertebral tenderness. Pelvis: Stable nontender. Genitourinary: Deferred. Rectal: Deferred. Extremities: Atraumatic, negative for cords or calf pain. Neurovascular unremarkable. Neuro: Awake, alert, oriented. Cranial nerves II through XII unremarkable. Cerebellum unremarkable. Motor and sensory unremarkable throughout. Exam nonfocal. Skin: 3 x 3 cm circular lesion, dark, cracked with no purulent drainage on his left inner arm, other lesions on his elbows right inner arm also present Diagnostics: [] Therapeutics: [] Impression: [] plaque psoriasis Plan: []Betamethasone twice a day and or Use [id number] emoillients to the areas. with dermatology Definitive disposition and diagnosis as appropriate pending reevaluation and review of above. - Related Data Allergies Allergy/AdvReac Type Severity Reaction Status Date / Time No Known Allergies Allergy Verified 10/26/17 12:41 Home Meds: Home Meds Albuterol [Proventil HFA] 2 puff INH Q4H PRN #1 inhaler 08/05/17 [Rx] Betamethasone/Propylene Glyc [Betamethasone Dp Aug 0.05% Oin] 45 gm TP BID #1 oint...g. 10/26/17 [Rx] Past Medical History HEENT History: Reports: None Cardiovascular History: Reports: None Respiratory History: Reports: Asthma Gastrointestinal History: Reports: None Genitourinary History: Reports: None Musculoskeletal History: Reports: None Neurological History: Reports: None Psychiatric History: Reports: None Endocrine/Metabolic History: Reports: None Hematologic History: Reports: None Immunologic History: Reports: None Oncologic (Cancer) History: Reports: None Dermatologic History: Reports: None - Infectious Disease History Infectious Disease History: Reports: Chicken Pox - Past Surgical History Head Surgeries/Procedures: Reports: None HEENT Surgical History: Reports: None Cardiovascular Surgical History: Reports: None Respiratory Surgical History: Reports: None GI Surgical History: Reports: None Male Surgical History: Reports: None Endocrine Surgical History: Reports: None Neurological Surgical History: Reports: None Musculoskeletal Surgical History: Reports: None Oncologic Surgical History: Reports: None Social & Family History - Family History Family Medical History: Noncontributory - Tobacco Use Smoking Status *Q: Never Smoker Years of Tobacco use: 3 Packs/Tins Daily: 0.2 Used Tobacco, but Quit: Yes Month/Year Tobacco Last Used: 04/2016 Second Hand Smoke Exposure: No - Caffeine Use Caffeine Use: Reports: Coffee, Energy Drinks, Soda, Tea Caffeine Use Comment: 2 bottles - Alcohol Use Days Per Week of Alcohol Use: 1 Number of Drinks Per Day: 0 Total Drinks Per Week: 0 - Recreational Drug Use Recreational Drug Use: No ED ROS GENERAL - Review of Systems Review Of Systems: See Below (See history of present illness) ED EXAM, SKIN/RASH Exam: See Below (See history of present illness) Course - Vital Signs Last Recorded V/S: Last Vital Signs Temp 97.2 F 10/26/17 12:40 Pulse 83 10/26/17 12:40 Resp 18 10/26/17 12:40 BP 137/63 10/26/17 12:40 Pulse Ox 93 L 10/26/17 12:40 Departure - Departure Time of Disposition: 12:56 Disposition: Home, Self-Care 01 Condition: Good Clinical Impression: Plaque psoriasis - Discharge Information Referrals: PCP,None [Primary Care Provider] - Forms: ED Department Discharge Additional Instructions: The following information is given to patients seen in the emergency department who are being discharged to home. This information is to outline your options for follow-up care. We provide all patients seen in our emergency department with a follow-up referral. The need for follow-up, as well as the timing and circumstances, are variable depending upon the specifics of your emergency department visit. If you don't have a primary care physician on staff, we will provide you with a referral. We always advise you to contact your personal physician following an emergency department visit to inform them of the circumstance of the visit and for follow-up with them and/or the need for any referrals to a consulting specialist. The emergency department will also refer you to a specialist when appropriate. This referral assures that you have the opportunity for follow-up care with a specialist. All of these measure are taken in an effort to provide you with optimal care, which includes your follow-up. Under all circumstances we always encourage you to contact your private physician who remains a resource for coordinating your care. When calling for follow-up care, please make the office aware that this follow-up is from your recent emergency room visit. If for any reason you are refused follow-up, please contact the [facility] Emergency Department at and asked to speak to the emergency department charge nurse. Betamethasone and use twice a day, follow-up with dermatology return if symptoms worsen or change. [facility] [address] [place] [id number]
[2017-10-26 13:09] VITALS: BP 124/76
== END 2017-10-26 13:10 | disposition home or self-care (01) ==
LOC: MW.ED 12:16
DX: L40.0 Psoriasis vulgaris (principal); Z87.891 Personal history of nicotine dependence
CPT/HCPCS: 99282

== ENCOUNTER 2017-11-23 11:13 | Emergency (ER) | payer BC ==
--- NOTE | 2017-11-23 11:25 | EDM.PDOC ---
ED HPI GENERAL MEDICAL PROBLEM - General Chief Complaint: Upper Extremity Injury/Pain Stated Complaint: SKIN RASH ON RIGHT ARM Time Seen by Provider: 11/23/17 11:22 Source of Information: Reports: Patient - History of Present Illness INITIAL COMMENTS - FREE TEXT/NARRATIVE: HISTORY AND PHYSICAL: History of present illness: [Patient has a history of axillary presents with lesion on right elbow which has secondarily been infected due to scratching mild redness and tenderness no fever nausea vomiting chills sweats No fluctuance or exudate for culture lesion is approximately 2 inches in diameter ] Review of systems: As per history of present illness and below otherwise all systems reviewed and negative. Past medical history: As per history of present illness and as reviewed below otherwise noncontributory. Surgical history: As per history of present illness and as reviewed below otherwise noncontributory. Social history: No reported history of drug or alcohol abuse. Family history: As per history of present illness and as reviewed below otherwise noncontributory. Physical exam: HEENT: Atraumatic, normocephalic, pupils reactive, negative for conjunctival pallor or scleral icterus, mucous membranes moist, throat clear, neck supple, nontender, trachea midline. Lungs: Clear to auscultation, breath sounds equal bilaterally, chest nontender. Heart: S1S2, regular, negative for clicks, rubs, or JVD. Abdomen: Soft, nondistended, nontender. Negative for masses or hepatosplenomegaly. Negative for costovertebral tenderness. Pelvis: Stable nontender. Genitourinary: Deferred. Rectal: Deferred. Extremities: Atraumatic, negative for cords or calf pain. Neurovascular unremarkable. Neuro: Awake, alert, oriented. Cranial nerves II through XII unremarkable. Cerebellum unremarkable. Motor and sensory unremarkable throughout. Exam nonfocal. Skin as per history of present illness otherwise unremarkable Diagnostics: [ clinical ] Therapeutics: [ Bactrim double strength by mouth twice a day #20 no refill Lotrisone ] Impression: [ cellulitis History of eczema ] Definitive disposition and diagnosis as appropriate pending reevaluation and review of above. - Related Data Allergies Allergy/AdvReac Type Severity Reaction Status Date / Time No Known Allergies Allergy Verified 10/26/17 12:41 Home Meds: Home Meds Albuterol [Proventil HFA] 2 puff INH Q4H PRN #1 inhaler 08/05/17 [Rx] Betamethasone/Propylene Glyc [Betamethasone Dp Aug 0.05% Oin] 45 gm TP BID #1 oint...g. 10/26/17 [Rx] Past Medical History HEENT History: Reports: None Cardiovascular History: Reports: None Respiratory History: Reports: Asthma Gastrointestinal History: Reports: None Genitourinary History: Reports: None Musculoskeletal History: Reports: None Neurological History: Reports: None Psychiatric History: Reports: None Endocrine/Metabolic History: Reports: None Hematologic History: Reports: None Immunologic History: Reports: None Oncologic (Cancer) History: Reports: None Dermatologic History: Reports: None - Infectious Disease History Infectious Disease History: Reports: Chicken Pox - Past Surgical History Head Surgeries/Procedures: Reports: None HEENT Surgical History: Reports: None Cardiovascular Surgical History: Reports: None Respiratory Surgical History: Reports: None GI Surgical History: Reports: None Male Surgical History: Reports: None Endocrine Surgical History: Reports: None Neurological Surgical History: Reports: None Musculoskeletal Surgical History: Reports: None Oncologic Surgical History: Reports: None Social & Family History - Family History Family Medical History: Noncontributory - Tobacco Use Smoking Status *Q: Never Smoker Years of Tobacco use: 3 Packs/Tins Daily: 0.2 Used Tobacco, but Quit: Yes Month/Year Tobacco Last Used: 04/2016 Second Hand Smoke Exposure: No - Caffeine Use Caffeine Use: Reports: Coffee, Energy Drinks, Soda, Tea Caffeine Use Comment: 2 bottles - Alcohol Use Days Per Week of Alcohol Use: 1 Number of Drinks Per Day: 0 Total Drinks Per Week: 0 - Recreational Drug Use Recreational Drug Use: No Review of Systems - Review of Systems Review Of Systems: ROS reveals no pertinent complaints other than HPI. ED EXAM, GENERAL - Physical Exam Exam: See Below Departure - Departure Time of Disposition: 11:23 Disposition: Home, Self-Care 01 Condition: Good Clinical Impression: Cellulitis - Discharge Information Referrals: PCP,None [Primary Care Provider] - Forms: ED Department Discharge Additional Instructions: Medication as prescribed Return if symptoms persist or worsen or new concerning symptoms develoSuch as fever nausea vomiting chills sweats despite antibiotic follow-up with primary care [facility] [address] [place] [id number] The following information is given to patients seen in the emergency department who are being discharged to home. This information is to outline your options for follow-up care. We provide all patients seen in our emergency department with a follow-up referral. The need for follow-up, as well as the timing and circumstances, are variable depending upon the specifics of your emergency department visit. If you don't have a primary care physician on staff, we will provide you with a referral. We always advise you to contact your personal physician following an emergency department visit to inform them of the circumstance of the visit and for follow-up with them and/or the need for any referrals to a consulting specialist. The emergency department will also refer you to a specialist when appropriate. This referral assures that you have the opportunity for follow-up care with a specialist. All of these measure are taken in an effort to provide you with optimal care, which includes your follow-up. Under all circumstances we always encourage you to contact your private physician who remains a resource for coordinating your care. When calling for follow-up care, please make the office aware that this follow-up is from your recent emergency room visit. If for any reason you are refused follow-up, please contact the [facility] emergency department at and asked to speak to the emergency department charge nurse.
[2017-11-23 11:32] VITALS: BP 133/80
== END 2017-11-23 11:41 | disposition home or self-care (01) ==
LOC: MW.ED 11:13
DX: L03.113 Cellulitis of right upper limb (principal)
CPT/HCPCS: 99282

== ENCOUNTER 2017-12-07 23:23 | Emergency (ER) | payer BC ==
[2017-12-07] MEDS ORDERED: Albuterol/Ipratropium 3.0-0.5 MG/3 ML Neb Soln NEB ONE (23:35)
[2017-12-07] MEDS ORDERED: methylPREDNISolone Sodium Succinate 125 MG/2 ML SDV IM ONE (23:41)
--- NOTE | 2017-12-08 00:03 | EDM.PDOC ---
ED HPI GENERAL MEDICAL PROBLEM - General Chief Complaint: Respiratory Problem Stated Complaint: PT HAS DIFFICULTY BREATHING Time Seen by Provider: 12/08/17 00:00 - History of Present Illness INITIAL COMMENTS - FREE TEXT/NARRATIVE: HISTORY AND PHYSICAL: History of present illness: Patient 32-year-old male history of asthma presenting concern of shortness of breath and wheezing he denies fever chills nausea vomiting or other complaints Review of systems: As per history of present illness and below otherwise all systems reviewed and negative. Past medical history: As per history of present illness and as reviewed below otherwise noncontributory. Surgical history: As per history of present illness and as reviewed below otherwise noncontributory. Social history: No reported history of drug or alcohol abuse. Family history: As per history of present illness and as reviewed below otherwise noncontributory. Physical exam: HEENT: Atraumatic, normocephalic, pupils reactive, negative for conjunctival pallor or scleral icterus, mucous membranes moist, throat clear, neck supple, nontender, trachea midline. Lungs: Scattered and extra wheezing no rhonchi no crackles breath sounds equal bilaterally, chest nontender. Heart: S1S2, regular, negative for clicks, rubs, or JVD. Abdomen: Soft, nondistended, nontender. Negative for masses or hepatosplenomegaly. Negative for costovertebral tenderness. Pelvis: Stable nontender. Genitourinary: Deferred. Rectal: Deferred. Extremities: Atraumatic, negative for cords or calf pain. Neurovascular unremarkable. Neuro: Awake, alert, oriented. Cranial nerves II through XII unremarkable. Cerebellum unremarkable. Motor and sensory unremarkable throughout. Exam nonfocal. Diagnostics: Chest x-ray Therapeutics: Albuterol ipratropium nebulizer Solu-Medrol 125 mg IM Impression: #1 acute asthmatic exacerbation Definitive disposition and diagnosis as appropriate pending reevaluation and review of above. chest Pain Score (Numeric/FACES): 4 - Related Data Allergies Allergy/AdvReac Type Severity Reaction Status Date / Time No Known Allergies Allergy Verified 12/07/17 23:34 Home Meds: Home Meds Albuterol [Proventil HFA] 2 puff INH Q4H PRN #1 inhaler 08/05/17 [Rx] Past Medical History - Past Health History Medical/Surgical History: Denies Medical/Surgical History HEENT History: Reports: None Cardiovascular History: Reports: None Respiratory History: Reports: Asthma Gastrointestinal History: Reports: None Genitourinary History: Reports: None Musculoskeletal History: Reports: None Neurological History: Reports: None Psychiatric History: Reports: None Endocrine/Metabolic History: Reports: None Hematologic History: Reports: None Immunologic History: Reports: None Oncologic (Cancer) History: Reports: None Dermatologic History: Reports: None - Infectious Disease History Infectious Disease History: Reports: Chicken Pox - Past Surgical History Head Surgeries/Procedures: Reports: None HEENT Surgical History: Reports: None Cardiovascular Surgical History: Reports: None Respiratory Surgical History: Reports: None GI Surgical History: Reports: None Male Surgical History: Reports: None Endocrine Surgical History: Reports: None Neurological Surgical History: Reports: None Musculoskeletal Surgical History: Reports: None Oncologic Surgical History: Reports: None Social & Family History - Family History Family Medical History: Noncontributory - Tobacco Use Smoking Status *Q: Former Smoker Used Tobacco, but Quit: Yes Month/Year Tobacco Last Used: 10 - Caffeine Use Caffeine Use: Reports: Coffee, Energy Drinks, Soda, Tea Caffeine Use Comment: 2 bottles - Recreational Drug Use Recreational Drug Use: No ED ROS GENERAL - Review of Systems Review Of Systems: ROS reveals no pertinent complaints other than HPI. ED EXAM, GENERAL - Physical Exam Exam: See Below (See dictation) Course - Vital Signs Last Recorded V/S: Last Vital Signs Temp 36.6 C 12/07/17 23:23 Pulse 98 12/07/17 23:23 Resp 24 H 12/07/17 23:23 BP 132/73 12/07/17 23:23 Pulse Ox 91 L 12/07/17 23:23 - Orders/Labs/Meds Orders: Active Orders 24 hr Category Date Time Status RT Aerosol Therapy [RC] ASDIRECTED Care 12/07/17 23:35 Active Chest 1V Frontal [CR] Stat Exams 12/07/17 23:42 Ordered Meds: Medications Discontinued Medications Generic Name Dose Route Start Last Admin Trade Name Freq PRN Reason Stop Dose Admin Albuterol/Ipratropium 3 ml 12/07/17 23:35 12/07/17 23:50 Duoneb 3.0-0.5 Mg/3 Ml NEB 12/07/17 23:36 3 ml ONETIME ONE Administration Methylprednisolone Sodium Succinate 125 mg 12/07/17 23:41 12/07/17 23:53 Solu-Medrol IM 12/07/17 23:42 125 mg ONETIME ONE Administration Departure - Departure Time of Disposition: 00:02 Disposition: Home, Self-Care 01 Condition: Good Clinical Impression: Acute asthma - Discharge Information Additional Instructions: The following information is given to patients seen in the emergency department who are being discharged to home. This information is to outline your options for follow-up care. We provide all patients seen in our emergency department with a follow-up referral. The need for follow-up, as well as the timing and circumstances, are variable depending upon the specifics of your emergency department visit. If you don't have a primary care physician on staff, we will provide you with a referral. We always advise you to contact your personal physician following an emergency department visit to inform them of the circumstance of the visit and for follow-up with them and/or the need for any referrals to a consulting specialist. The emergency department will also refer you to a specialist when appropriate. This referral assures that you have the opportunity for followup care with a specialist. All of these measure are taken in an effort to provide you with optimal care, which includes your followup. Under all circumstances we always encourage you to contact your private physician who remains a resource for coordinating your care. When calling for followup care, please make the office aware that this follow-up is from your recent emergency room visit. If for any reason you are refused follow-up, please contact the [facility] emergency department at and asked to speak to the emergency department charge nurse. Medrol as prescribed continue albuterol inhaler as directed follow-up private medical doctor 1-2 days return as needed as discussed - My Orders Last 24 Hours: My Active Orders 12/07/17 23:35 RT Aerosol Therapy [RC] ASDIRECTED 12/07/17 23:42 Chest 1V Frontal [CR] Stat - Assessment/Plan Last 24 Hours: My Active Orders 12/07/17 23:35 RT Aerosol Therapy [RC] ASDIRECTED 12/07/17 23:42 Chest 1V Frontal [CR] Stat
[2017-12-08 00:55] VITALS: BP 126/70
--- NOTE | 2017-12-08 16:19 | CR ---
EXAM DATE: 12/07/17 PATIENT'S AGE: 32 Patient: LISA ESPITIA Facility: [place], [place] Site . Site : 1985 Study: XRay Chest [id number]/[id number] 12:22:11 AM Ordering Physician: Doctor Torres Final Report: INDICATION: Chest pain, shortness of breath TECHNIQUE: Chest radiograph 1 view COMPARISON: 08/05/17 FINDINGS: Mediastinum: The heart silhouette is normal in size and morphology. The mediastinum is normal in appearance. Lungs: Both lungs are unremarkable in appearance. No sign of pleural effusion seen. No pneumothorax is identified. Bones and soft tissue: Unremarkable for age. IMPRESSION: 1. No acute cardiopulmonary disease is seen. Dictated by: Yves Chawla MD @ 12/08/2017 00:26:11 (Electronic Signature) Report Signed by Proxy. MAGDALENE
== END 2017-12-08 00:50 | disposition home or self-care (01) ==
LOC: MW.ED 23:23
DX: J45.901 Unspecified asthma with (acute) exacerbation (principal); Z87.891 Personal history of nicotine dependence
CPT/HCPCS: 71045; 94640; 96372; 99285; J2930

== ENCOUNTER 2018-01-29 12:06 | Emergency (ER) | payer BC ==
--- NOTE | 2018-01-29 12:44 | EDM.PDOC ---
ED HPI GENERAL MEDICAL PROBLEM - General Chief Complaint: Respiratory Problem Stated Complaint: ASTHMA Time Seen by Provider: 01/29/18 12:44 Source of Information: Reports: Patient History Limitations: Reports: No Limitations - History of Present Illness INITIAL COMMENTS - FREE TEXT/NARRATIVE: HISTORY AND PHYSICAL: History of present illness: Patient is a 33-year-old male who presents to the emergency room with request for medication refill. He does have a history of asthma and uses a Proventil inhaler at least once daily for management of this. He recently ran out of his inhaler and has been using some DuoNeb ampules, as he had some left over from previous illness. He denies any fever, chills, chest pain, shortness of breath or cough. Denies any abdominal pain, nausea, vomiting, diarrhea or constipation. Review of systems: As per history of present illness and below otherwise all systems reviewed and negative. Past medical history: As per history of present illness and as reviewed below otherwise noncontributory. Surgical history: As per history of present illness and as reviewed below otherwise noncontributory. Social history: No reported history of drug or alcohol abuse. Family history: As per history of present illness and as reviewed below otherwise noncontributory. Physical exam: General: Well-developed and well-nourished 33-year-old -Russian male. Alert and oriented. Nontoxic appearing and in no acute distress. HEENT: Atraumatic, normocephalic, pupils equal and reactive bilaterally, negative for conjunctival pallor or scleral icterus, mucous membranes moist, throat clear, neck supple, nontender, trachea midline. No drooling or trismus noted. No meningeal signs Lungs: Fine expiratory wheezing noted to bilateral posterior bases otherwise clear to auscultation, breath sounds equal bilaterally, chest nontender. Heart: S1S2, regular rate and rhythm without overt murmur Abdomen: Soft, nondistended, nontender. Negative for masses or hepatosplenomegaly. Negative for costovertebral tenderness. Pelvis: Stable nontender. Genitourinary: Deferred. Rectal: Deferred. Skin: Intact, warm, dry. No lesions or rashes noted. Extremities: Atraumatic, negative for cords or calf pain. Neurovascular unremarkable. Neuro: Awake, alert, oriented. Cranial nerves II through XII unremarkable. Cerebellum unremarkable. Motor and sensory unremarkable throughout. Exam nonfocal. Notes: I did offer the patient a DuoNeb while here, he declines. He states he would like his medication refilled along with a prescription for Medrol Dosepak. I'm comfortable with this. I did encourage him to follow-up with his primary care provider. He is agreeable to plan of care. He denies any further restaurant or concerns at this time. Diagnostics: Declines Therapeutics: Declines Impression: Encounter for medication refill Asthma Plan: 1. Please take your medications as directed. 2. Follow-up with your primary care provider in the next 1-2 days. Return to the ED as needed and as discussed. Definitive disposition and diagnosis as appropriate pending reevaluation and review of above. Chest Pain Score (Numeric/FACES): 2 - Related Data Allergies Allergy/AdvReac Type Severity Reaction Status Date / Time No Known Allergies Allergy Verified 01/29/18 12:44 Home Meds: Home Meds Albuterol [Proventil HFA] 2 puff INH Q4H PRN #1 inhaler 08/05/17 [Rx] Past Medical History - Past Health History Medical/Surgical History: Denies Medical/Surgical History HEENT History: Reports: None Cardiovascular History: Reports: None Respiratory History: Reports: Asthma Gastrointestinal History: Reports: None Genitourinary History: Reports: None Musculoskeletal History: Reports: None Neurological History: Reports: None Psychiatric History: Reports: None Endocrine/Metabolic History: Reports: None Hematologic History: Reports: None Immunologic History: Reports: None Oncologic (Cancer) History: Reports: None Dermatologic History: Reports: None - Infectious Disease History Infectious Disease History: Reports: Chicken Pox - Past Surgical History Head Surgeries/Procedures: Reports: None HEENT Surgical History: Reports: None Cardiovascular Surgical History: Reports: None Respiratory Surgical History: Reports: None GI Surgical History: Reports: None Male Surgical History: Reports: None Endocrine Surgical History: Reports: None Neurological Surgical History: Reports: None Musculoskeletal Surgical History: Reports: None Oncologic Surgical History: Reports: None Social & Family History - Family History Family Medical History: Noncontributory - Caffeine Use Caffeine Use: Reports: Coffee, Energy Drinks, Soda, Tea Caffeine Use Comment: 2 bottles ED ROS GENERAL - Review of Systems Review Of Systems: ROS reveals no pertinent complaints other than HPI. ED EXAM, GENERAL - Physical Exam Exam: See Below (See dictation) Course - Vital Signs Last Recorded V/S: Last Vital Signs Temp 97.3 F 01/29/18 12:45 Pulse 96 01/29/18 12:45 Resp 18 01/29/18 12:45 BP 115/86 01/29/18 12:45 Pulse Ox 91 L 01/29/18 12:45 Departure - Departure Time of Disposition: 13:05 Disposition: Home, Self-Care 01 Clinical Impression: Encounter for medication refill Asthma Qualifiers: Asthma severity: moderate Asthma persistence: persistent Asthma complication type: unspecified Qualified Code(s): J45.40 - Moderate persistent asthma, uncomplicated - Discharge Information Referrals: PCP,None [Primary Care Provider] - Forms: ED Department Discharge Additional Instructions: The following information is given to patients seen in the emergency department who are being discharged to home. This information is to outline your options for follow-up care. We provide all patients seen in our emergency department with a follow-up referral. The need for follow-up, as well as the timing and circumstances, are variable depending upon the specifics of your emergency department visit. If you don't have a primary care physician on staff, we will provide you with a referral. We always advise you to contact your personal physician following an emergency department visit to inform them of the circumstance of the visit and for follow-up with them and/or the need for any referrals to a consulting specialist. The emergency department will also refer you to a specialist when appropriate. This referral assures that you have the opportunity for follow-up care with a specialist. All of these measure are taken in an effort to provide you with optimal care, which includes your follow-up. Under all circumstances we always encourage you to contact your private physician who remains a resource for coordinating your care. When calling for follow-up care, please make the office aware that this follow-up is from your recent emergency room visit. If for any reason you are refused follow-up, please contact the [facility] Emergency Department at and asked to speak to the emergency department charge nurse. [facility] [address] [place] [id number] 1. Please take your medications as directed. 2. Follow-up with your primary care provider in the next 1-2 days. Return to the ED as needed and as discussed.
[2018-01-29 13:33] VITALS: BP 122/86
== END 2018-01-29 13:26 | disposition home or self-care (01) ==
LOC: MW.ED 12:06
DX: J45.40 Moderate persistent asthma, uncomplicated (principal); Z76.0 Encounter for issue of repeat prescription
CPT/HCPCS: 99281

== ENCOUNTER 2018-10-20 19:22 | Emergency (ER) | payer SELFPAY ==
--- NOTE | 2018-10-20 20:16 | EDM.PDOC ---
ED HPI GENERAL MEDICAL PROBLEM - General Chief Complaint: Skin Complaint Stated Complaint: ECZEMA Time Seen by Provider: 10/20/18 20:06 - History of Present Illness INITIAL COMMENTS - FREE TEXT/NARRATIVE: HISTORY AND PHYSICAL: History of present illness: The patient is a 33-year-old male who lives in [place] and is here working and presents with a flare of his eczema and he does not have his cream to treat it. Patient says he has a steroid cream at home that he uses when he gets flareups and his current flareup on his lower extremities is typical of his eczema. He is not sure if it got irritated triggering the flareup and he has no systemic complaints of fever chills chest pain or shortness of breath. Patient also has a history of asthma but says that his asthma is not flaring up currently. He also tells me that he oftentimes will get some low-dose prednisone to help with this. He has no other complaints and is only here because he does not have his steroid cream. Review of systems: As per history of present illness and below otherwise all systems reviewed and negative. Past medical history: As per history of present illness and as reviewed below otherwise noncontributory. Surgical history: As per history of present illness and as reviewed below otherwise noncontributory. Social history: No reported history of drug or alcohol abuse. Family history: As per history of present illness and as reviewed below otherwise noncontributory. Physical exam: General: Well-developed well-nourished man who is nontoxic and speaks clearly in the ED and vital signs are noted HEENT: Atraumatic, normocephalic, negative for conjunctival pallor or scleral icterus, mucous membranes moist, throat clear, neck supple, nontender, trachea midline. Lungs: Clear to auscultation with a slight wheeze at the left base but no worker breathing or stridor, breath sounds equal bilaterally, chest nontender. Heart: S1S2, regular rate and rhythm no overt murmurs Abdomen: Soft, nondistended, nontender. NABS Pelvis: Deferred Genitourinary: Deferred. Rectal: Deferred. Extremities: Atraumatic, negative for cords or calf pain. Neurovascular unremarkable. Neuro: Awake, alert, oriented. Cranial nerves II through XII unremarkable. Cerebellum unremarkable. Motor and sensory unremarkable throughout. Exam nonfocal. Skin: On the lower extremities there are a few scattered patchy areas of dry scaly skin the most noteworthy are behind the lower legs bilaterally which yield large patches of dry scaly skin which is very irritated but there is no evidence of any erythema or swelling. Diagnostics: [] Therapeutics: [] The patient is unsure of the name of the steroid cream that he normally uses and thinks it might be triamcinolone which I prescribed for him as well as a Medrol Dosepak Impression: Eczema flareup Definitive disposition and diagnosis as appropriate pending reevaluation and review of above. Generalized Pain Score (Numeric/FACES): 7 - Related Data Allergies Allergy/AdvReac Type Severity Reaction Status Date / Time No Known Allergies Allergy Verified 10/20/18 19:59 Home Meds: Home Meds Albuterol Sulfate [Proair Hfa] 2 puff INH ASDIRECTED PRN 10/20/18 [History] Past Medical History - Past Health History Medical/Surgical History: Denies Medical/Surgical History HEENT History: Reports: None Cardiovascular History: Reports: None Respiratory History: Reports: Asthma Gastrointestinal History: Reports: None Genitourinary History: Reports: None Musculoskeletal History: Reports: None Neurological History: Reports: None Psychiatric History: Reports: None Endocrine/Metabolic History: Reports: None Hematologic History: Reports: None Immunologic History: Reports: None Oncologic (Cancer) History: Reports: None Dermatologic History: Reports: Eczema - Infectious Disease History Infectious Disease History: Reports: Chicken Pox - Past Surgical History Head Surgeries/Procedures: Reports: None HEENT Surgical History: Reports: None Cardiovascular Surgical History: Reports: None Respiratory Surgical History: Reports: None GI Surgical History: Reports: None Male Surgical History: Reports: None Endocrine Surgical History: Reports: None Neurological Surgical History: Reports: None Musculoskeletal Surgical History: Reports: None Oncologic Surgical History: Reports: None Social & Family History - Family History Family Medical History: Noncontributory - Tobacco Use Smoking Status *Q: Current Some Day Smoker Years of Tobacco use: 5 Packs/Tins Daily: 0 - Caffeine Use Caffeine Use: Reports: Energy Drinks Caffeine Use Comment: 2 bottles - Recreational Drug Use Recreational Drug Use: No ED ROS GENERAL - Review of Systems Review Of Systems: ROS reveals no pertinent complaints other than HPI. ED EXAM, SKIN/RASH Exam: See Below (See dictation) Course - Vital Signs Last Recorded V/S: Last Vital Signs Temp 36.6 C 10/20/18 19:58 Pulse 87 10/20/18 19:58 Resp 18 10/20/18 19:58 BP Pulse Ox Departure - Departure Time of Disposition: 20:15 Disposition: Home, Self-Care 01 Condition: Good Clinical Impression: Eczema Qualifiers: Eczema type: unspecified Qualified Code(s): L30.9 - Dermatitis, unspecified - Discharge Information Additional Instructions: The following information is given to patients seen in the emergency department who are being discharged to home. This information is to outline your options for follow-up care. We provide all patients seen in our emergency department with a follow-up referral. The need for follow-up, as well as the timing and circumstances, are variable depending upon the specifics of your emergency department visit. If you don't have a primary care physician on staff, we will provide you with a referral. We always advise you to contact your personal physician following an emergency department visit to inform them of the circumstance of the visit and for follow-up with them and/or the need for any referrals to a consulting specialist. The emergency department will also refer you to a specialist when appropriate. This referral assures that you have the opportunity for followup care with a specialist. All of these measure are taken in an effort to provide you with optimal care, which includes your followup. Under all circumstances we always encourage you to contact your private physician who remains a resource for coordinating your care. When calling for followup care, please make the office aware that this follow-up is from your recent emergency room visit. If for any reason you are refused follow-up, please contact the [facility] emergency department at and ask to speak to the emergency department charge nurse. [facility]- Internal Medicine and Family [address] [address] Please fill your prescription for the steroid cream as well as a Medrol Dosepak and use as directed. Try to keep your areas of eczema clean and dry and avoid further friction and irritation. Call and schedule a follow-up appointment in our clinic with one of our providers or with your provider at home in [place] and return to ER as needed and as discussed
== END 2018-10-20 20:22 | disposition home or self-care (01) ==
LOC: MW.ED 19:22
DX: L30.9 Dermatitis, unspecified (principal); J45.909 Unspecified asthma, uncomplicated
CPT/HCPCS: 99282

== ENCOUNTER 2018-12-03 12:33 | Emergency (ER) | payer SELFPAY ==
--- NOTE | 2018-12-03 12:37 | EDM.PDOC ---
ED HPI GENERAL MEDICAL PROBLEM - General Stated Complaint: SKIN RASH Time Seen by Provider: 12/03/18 12:36 Source of Information: Reports: Patient History Limitations: Reports: No Limitations - History of Present Illness INITIAL COMMENTS - FREE TEXT/NARRATIVE: HISTORY AND PHYSICAL: History of present illness: Patient is a 33-year-old male who presents to the emergency room with complaints of irritation to his eczema. He was evaluated in the emergency room several times previous for refill of his triamcinolone cream. He states that the bottle he received was a very small amount and therefore has not been able to use this medication during flareups. The one area he is concerned about is behind his left posterior calf. He states he has been scratching so hard he is concerned as he does have "bumps of pus". Review of systems: As per history of present illness and below otherwise all systems reviewed and negative. Past medical history: As per history of present illness and as reviewed below otherwise noncontributory. Surgical history: As per history of present illness and as reviewed below otherwise noncontributory. Social history: See social history for further information Family history: As per history of present illness and as reviewed below otherwise noncontributory. Physical exam: General: HEENT: Atraumatic, normocephalic, pupils equal and reactive bilaterally, negative for conjunctival pallor or scleral icterus, mucous membranes moist, trachea midline. No drooling or trismus noted. No meningeal signs. No hot potato voice noted. Lungs: Clear to auscultation, breath sounds equal bilaterally, chest nontender. Heart: S1S2, regular rate and rhythm without overt murmur Abdomen: Soft, nondistended, nontender. Skin: To the left lower extremity to the posterior proximal upper calf, has a patch of excessively dry scaly skin which appears irritated. No surrounding erythema or soft tissue swelling. Otherwise skin is intact, warm, dry. No lesions or rashes noted. Extremities: Atraumatic, moves all extremities per self without difficulty or deficits, negative for cords or calf pain. Neurovascular unremarkable. Neuro: Awake, alert, oriented. Cranial nerves II through XII unremarkable. Cerebellum unremarkable. Motor and sensory unremarkable throughout. Exam nonfocal. Notes: Encourage patient to follow-up or establish care with a primary care provider as he has been seen in our emergency room a few times previous for his medication refill. He states that the triamcinolone cream and Medrol Dosepak that he was prescribed previously had worked well for him. I we will refill this time. Supportive care measures were reviewed and discussed. Voices understanding and is agreeable to plan of care. Denies any further questions or concerns at this time. Diagnostics: None Therapeutics: None Prescription: Triamcinolone Medrol Dosepak Impression: Eczema Encounter for medication refill Plan: 1. Keep skin clean and dry. 2. Use the medications as directed. 3. Continue to monitor for signs of improvement. 4. Establish care with a primary care provider for further evaluation and management of your chronic eczema. 5. Return to the ED as needed and as discussed. Definitive disposition and diagnosis as appropriate pending reevaluation and review of above. Left Lower Leg Pain Score (Numeric/FACES): 5 - Related Data Allergies Allergy/AdvReac Type Severity Reaction Status Date / Time No Known Allergies Allergy Verified 12/03/18 12:44 Home Meds: Home Meds Albuterol Sulfate [Proair Hfa] 2 puff INH ASDIRECTED PRN 10/20/18 [History] Past Medical History - Past Health History Medical/Surgical History: Denies Medical/Surgical History HEENT History: Reports: None Cardiovascular History: Reports: None Respiratory History: Reports: Asthma Gastrointestinal History: Reports: None Genitourinary History: Reports: None Musculoskeletal History: Reports: None Neurological History: Reports: None Psychiatric History: Reports: None Endocrine/Metabolic History: Reports: None Hematologic History: Reports: None Immunologic History: Reports: None Oncologic (Cancer) History: Reports: None Dermatologic History: Reports: Eczema - Infectious Disease History Infectious Disease History: Reports: Chicken Pox - Past Surgical History Head Surgeries/Procedures: Reports: None HEENT Surgical History: Reports: None Cardiovascular Surgical History: Reports: None Respiratory Surgical History: Reports: None GI Surgical History: Reports: None Male Surgical History: Reports: None Endocrine Surgical History: Reports: None Neurological Surgical History: Reports: None Musculoskeletal Surgical History: Reports: None Oncologic Surgical History: Reports: None Social & Family History - Family History Family Medical History: Noncontributory - Caffeine Use Caffeine Use: Reports: Energy Drinks Caffeine Use Comment: 2 bottles ED ROS GENERAL - Review of Systems Review Of Systems: ROS reveals no pertinent complaints other than HPI. ED EXAM, SKIN/RASH Exam: See Below (See dictation) Course - Vital Signs Last Recorded V/S: Last Vital Signs Temp 96.5 F 12/03/18 12:45 Pulse 84 12/03/18 13:04 Resp 14 12/03/18 13:04 BP 131/59 L 12/03/18 13:04 Pulse Ox 96 12/03/18 13:04 Departure - Departure Time of Disposition: 12:54 Disposition: Home, Self-Care 01 Clinical Impression: Medication refill Eczema Qualifiers: Eczema type: unspecified Qualified Code(s): L30.9 - Dermatitis, unspecified - Discharge Information Instructions: Eczema Referrals: PCP,None [Primary Care Provider] - Forms: ED Department Discharge Additional Instructions: The following information is given to patients seen in the emergency department who are being discharged to home. This information is to outline your options for follow-up care. We provide all patients seen in our emergency department with a follow-up referral. The need for follow-up, as well as the timing and circumstances, are variable depending upon the specifics of your emergency department visit. If you don't have a primary care physician on staff, we will provide you with a referral. We always advise you to contact your personal physician following an emergency department visit to inform them of the circumstance of the visit and for follow-up with them and/or the need for any referrals to a consulting specialist. The emergency department will also refer you to a specialist when appropriate. This referral assures that you have the opportunity for follow-up care with a specialist. All of these measure are taken in an effort to provide you with optimal care, which includes your follow-up. Under all circumstances we always encourage you to contact your private physician who remains a resource for coordinating your care. When calling for follow-up care, please make the office aware that this follow-up is from your recent emergency room visit. If for any reason you are refused follow-up, please contact the [facility] Emergency Department at and asked to speak to the emergency department charge nurse. [facility] [address] [place] [address] [id number] [address] [address] 1. Keep skin clean and dry. 2. Use the medications as directed. 3. Continue to monitor for signs of improvement. 4. Establish care with a primary care provider for further evaluation and management of your chronic eczema. 5. Return to the ED as needed and as discussed.
[2018-12-03 13:04] VITALS: BP 131/59
== END 2018-12-03 13:04 | disposition home or self-care (01) ==
LOC: MW.ED 12:33
DX: L30.9 Dermatitis, unspecified (principal); Z76.0 Encounter for issue of repeat prescription
CPT/HCPCS: 99282

== ENCOUNTER 2019-01-20 13:35 | Emergency (ER) | payer SELFPAY ==
--- NOTE | 2019-01-20 14:17 | EDM.PDOC ---
ED HPI GENERAL MEDICAL PROBLEM - General Chief Complaint: Respiratory Problem Stated Complaint: ASTHMA ECZEMA Time Seen by Provider: 01/20/19 13:39 Source of Information: Reports: Patient History Limitations: Reports: No Limitations - History of Present Illness INITIAL COMMENTS - FREE TEXT/NARRATIVE: HISTORY AND PHYSICAL: History of present illness: Patient is a 34-year-old male presents to the ED today with concern of an eczema outbreak. Patient states he has frequent outbreaks and has recently moved [place] so has not established a primary care provider in [place] yet. Patient states he's been working the past 2-3 weeks without a break from work which is when the symptoms had started and has not been able to get in for an appointment with PCP. Patient states he is in the process of establishing a primary care in [place] and is working on getting his medical records transferred over. Patient states he has been scratching the area of eczema outbreak on his right thigh which has begun to turn a little bit red on his right leg. Patient does state he has had passed cellulitis infections from scratching too much. Patient states in the past for his breakouts he uses triamcinolone ointment, and a brief oral steroid which has worked for his past outbreaks. Patient denies any other health history or any other concerns today. Patient denies fever, chills, chest pain, shortness of breath, or cough. Denies headache, neck stiff ness, change in vision, syncope, or near syncope. Denies nausea, vomiting, abdominal pain, diarrhea, constipation, or dysuria. Has not noted any blood in urine or stool. Patient has been eating and drinking appropriately. Review of systems: As per history of present illness and below otherwise all systems reviewed and negative. Past medical history: As per history of present illness and as reviewed below otherwise noncontributory. Surgical history: As per history of present illness and as reviewed below otherwise noncontributory. Social history: See social history for further information Family history: As per history of present illness and as reviewed below otherwise noncontributory. Physical exam: General: Patient is alert, oriented, and in no acute distress. Patient sitting comfortably on exam table. HEENT: Atraumatic, normocephalic, pupils equal and reactive bilaterally, negative for conjunctival pallor or scleral icterus, mucous membranes moist, TMs normal bilaterally, throat clear, neck supple, nontender, trachea midline. No drooling or trismus noted. No meningeal signs. No hot potato voice noted. Lungs: Clear to auscultation, breath sounds equal bilaterally, chest nontender. Heart: S1S2, regular rate and rhythm without overt murmur Abdomen: Soft, nondistended, nontender. Negative for masses or hepatosplenomegaly. Negative for costovertebral tenderness. Pelvis: Stable nontender. Genitourinary: Deferred. Rectal: Deferred. Skin: There are several eczema patches on the right thigh and calf. Patient has been scratching the area on the medial right thigh which has a little bit of redness with overlying superficial excoriations; potentially a beginning cellulitis. The area of the thigh is approximately 7cm by 7cm and the calf area has a patch that is approximately 4cm by 4cm. Extremities: See skin. Atraumatic, negative for cords or calf pain. Neurovascular unremarkable. Neuro: Awake, alert, oriented. Cranial nerves II through XII unremarkable. Cerebellum unremarkable. Motor and sensory unremarkable throughout. Exam nonfocal. Notes: Did offer diagnostics but patient declines at this time. On exam, does appear to have an early cellulitis due to secondarily excoriations of a eczema patch. We'll give antibiotic as well as treat for exacerbation of his eczema. Discussed the importance of follow-up with a primary care provider. Voices understanding and is agreeable to plan of care. Denies any further questions or concerns at this time. Diagnostics: Patient declines Therapeutics: None Prescription: Triamcinolone ointment, Medrol dose pack, Keflex Impression: Atopic dermatitis exacerbation Mild, early cellulitis Plan: 1. Take medication as prescribed. You can alternate ibuprofen and Tylenol as directed for pain and discomfort. 2. Follow-up with a primary care provider as discussed. Return to the ED as needed and as discussed. Definitive disposition and diagnosis as appropriate pending reevaluation and review of above. - Related Data Allergies Allergy/AdvReac Type Severity Reaction Status Date / Time No Known Allergies Allergy Verified 12/03/18 12:44 Home Meds: Home Meds Albuterol Sulfate [Proair Hfa] 2 puff INH ASDIRECTED PRN 10/20/18 [History] Past Medical History - Past Health History Medical/Surgical History: Denies Medical/Surgical History HEENT History: Reports: None Cardiovascular History: Reports: None Respiratory History: Reports: Asthma Gastrointestinal History: Reports: None Genitourinary History: Reports: None Musculoskeletal History: Reports: None Neurological History: Reports: None Psychiatric History: Reports: None Endocrine/Metabolic History: Reports: None Hematologic History: Reports: None Immunologic History: Reports: None Oncologic (Cancer) History: Reports: None Dermatologic History: Reports: Eczema - Infectious Disease History Infectious Disease History: Reports: Chicken Pox - Past Surgical History Head Surgeries/Procedures: Reports: None HEENT Surgical History: Reports: None Cardiovascular Surgical History: Reports: None Respiratory Surgical History: Reports: None GI Surgical History: Reports: None Male Surgical History: Reports: None Endocrine Surgical History: Reports: None Neurological Surgical History: Reports: None Musculoskeletal Surgical History: Reports: None Oncologic Surgical History: Reports: None Social & Family History - Family History Family Medical History: Noncontributory - Caffeine Use Caffeine Use: Reports: Energy Drinks Caffeine Use Comment: 2 bottles ED ROS GENERAL - Review of Systems Review Of Systems: ROS reveals no pertinent complaints other than HPI. ED EXAM, GENERAL - Physical Exam Exam: See Below (See dictation) Departure - Departure Time of Disposition: 14:11 Disposition: Home, Self-Care 01 Clinical Impression: Atopic dermatitis Qualifiers: Atopic dermatitis type: unspecified Qualified Code(s): L20.9 - Atopic dermatitis, unspecified Cellulitis Qualifiers: Site of cellulitis: extremity Site of cellulitis of extremity: lower extremity Laterality: right Qualified Code(s): L03.115 - Cellulitis of right lower limb - Discharge Information Additional Instructions: The following information is given to patients seen in the emergency department who are being discharged to home. This information is to outline your options for follow-up care. We provide all patients seen in our emergency department with a follow-up referral. The need for follow-up, as well as the timing and circumstances, are variable depending upon the specifics of your emergency department visit. If you don't have a primary care physician on staff, we will provide you with a referral. We always advise you to contact your personal physician following an emergency department visit to inform them of the circumstance of the visit and for follow-up with them and/or the need for any referrals to a consulting specialist. The emergency department will also refer you to a specialist when appropriate. This referral assures that you have the opportunity for follow-up care with a specialist. All of these measure are taken in an effort to provide you with optimal care, which includes your follow-up. Under all circumstances we always encourage you to contact your private physician who remains a resource for coordinating your care. When calling for follow-up care, please make the office aware that this follow-up is from your recent emergency room visit. If for any reason you are refused follow-up, please contact the [facility] Emergency Department at and asked to speak to the emergency department charge nurse. [facility] [address] [place] [id number] [id number] 1. Take medication as prescribed. You can alternate ibuprofen and Tylenol as directed for pain and discomfort. 2. Follow-up with a primary care provider as discussed. Return to the ED as needed and as discussed.
[2019-01-20 15:00] VITALS: BP 118/60
== END 2019-01-20 14:57 | disposition home or self-care (01) ==
LOC: MW.ED 13:35
DX: L20.9 Atopic dermatitis, unspecified (principal); L03.115 Cellulitis of right lower limb
CPT/HCPCS: 99281; 99283

== ENCOUNTER 2019-05-15 10:44 | Emergency (ER) | payer BC ==
--- NOTE | 2019-05-15 11:17 | EDM.PDOC ---
ED HPI GENERAL MEDICAL PROBLEM - General Chief Complaint: Skin Complaint Stated Complaint: ECZEMA Time Seen by Provider: 05/15/19 10:57 Source of Information: Reports: Patient History Limitations: Reports: No Limitations - History of Present Illness INITIAL COMMENTS - FREE TEXT/NARRATIVE: HISTORY AND PHYSICAL: History of present illness: Patient is a 34-year-old -[place] male who presents to the ED today with concern of eczema exacerbation. Patient states that he has a known history of eczema and states that he always gets breakouts in the back of his knees. Patient states over the past couple days he's had a breakout on the back of his knees but does not have any cream for his rash. Patient states he usually uses triamcinolone topical which does help his rash. Patient denies any associated symptoms or any other symptoms or concerns. Patient denies fever, chills, chest pain, shortness of breath, or cough. Denies headache, neck stiff ness, change in vision, syncope, or near syncope. Denies nausea, vomiting, abdominal pain, diarrhea, constipation, or dysuria. Has not noted any blood in urine or stool. Patient has been eating and drinking appropriately. Review of systems: As per history of present illness and below otherwise all systems reviewed and negative. Past medical history: As per history of present illness and as reviewed below otherwise noncontributory. Surgical history: As per history of present illness and as reviewed below otherwise noncontributory. Social history: See social history for further information Family history: As per history of present illness and as reviewed below otherwise noncontributory. Physical exam: General: Patient is alert, oriented, and in no acute distress. Patient sitting comfortably on exam table. HEENT: Atraumatic, normocephalic, pupils equal and reactive bilaterally, negative for conjunctival pallor or scleral icterus, mucous membranes moist, TMs normal bilaterally, throat clear, neck supple, nontender, trachea midline. No drooling or trismus noted. No meningeal signs. No hot potato voice noted. Lungs: Clear to auscultation, breath sounds equal bilaterally, chest nontender. Heart: S1S2, regular rate and rhythm without overt murmur Abdomen: Soft, nondistended, nontender. Negative for masses or hepatosplenomegaly. Negative for costovertebral tenderness. Pelvis: Stable nontender. Genitourinary: Deferred. Rectal: Deferred. Skin: Intact, warm, dry. There are patches of dry eczema patches on bilateral popliteal fossa of the posterior and knees. There are a few superficial excoriation areas surrounding the these areas. Extremities: See skin. Otherwise, Atraumatic, negative for cords or calf pain. Neurovascular unremarkable. Neuro: Awake, alert, oriented. Cranial nerves II through XII unremarkable. Cerebellum unremarkable. Motor and sensory unremarkable throughout. Exam nonfocal. Notes: Discussed the importance for follow-up with a primary care provider. Voices understanding and is agreeable to plan of care. Denies any further questions or concerns at this time. Diagnostics: None Therapeutics: None Prescription: Triamcinolone topical, low potency Impression: Eczema dermatitis Plan: 1. Apply medication as prescribed. You can alternate ibuprofen and Tylenol as directed for pain and discomfort. 2. Follow-up with your primary care provider as discussed. Return to the ED as needed and as discussed. Definitive disposition and diagnosis as appropriate pending reevaluation and review of above. - Related Data Allergies Allergy/AdvReac Type Severity Reaction Status Date / Time No Known Allergies Allergy Verified 01/20/19 14:12 Home Meds: Home Meds Albuterol Sulfate [Proair Hfa] 2 puff INH ASDIRECTED PRN 10/20/18 [History] Budesonide/Formoterol [Symbicort 160-4.5 MCG] 05/15/19 [History] Past Medical History - Past Health History Medical/Surgical History: Denies Medical/Surgical History HEENT History: Reports: None Cardiovascular History: Reports: None Respiratory History: Reports: Asthma Gastrointestinal History: Reports: None Genitourinary History: Reports: None Musculoskeletal History: Reports: None Neurological History: Reports: None Psychiatric History: Reports: None Endocrine/Metabolic History: Reports: None Hematologic History: Reports: None Immunologic History: Reports: None Oncologic (Cancer) History: Reports: None Dermatologic History: Reports: Eczema - Infectious Disease History Infectious Disease History: Reports: Chicken Pox - Past Surgical History Head Surgeries/Procedures: Reports: None HEENT Surgical History: Reports: None Cardiovascular Surgical History: Reports: None Respiratory Surgical History: Reports: None GI Surgical History: Reports: None Male Surgical History: Reports: None Endocrine Surgical History: Reports: None Neurological Surgical History: Reports: None Musculoskeletal Surgical History: Reports: None Oncologic Surgical History: Reports: None Social & Family History - Family History Family Medical History: Noncontributory - Tobacco Use Smoking Status *Q: Light Tobacco Smoker Years of Tobacco use: 4 Packs/Tins Daily: 0.1 - Caffeine Use Caffeine Use: Reports: Energy Drinks Caffeine Use Comment: 2 bottles - Recreational Drug Use Recreational Drug Use: No ED ROS GENERAL - Review of Systems Review Of Systems: ROS reveals no pertinent complaints other than HPI. ED EXAM, SKIN/RASH Exam: See Below (See dictation) Course - Vital Signs Last Recorded V/S: Last Vital Signs Temp 96.4 F 05/15/19 11:00 Pulse 98 05/15/19 11:00 Resp 16 05/15/19 11:00 BP 123/63 05/15/19 11:00 Pulse Ox 95 05/15/19 11:00 Departure - Departure Time of Disposition: 11:16 Disposition: Home, Self-Care 01 Clinical Impression: Eczematous dermatitis Qualifiers: Eczema type: unspecified Qualified Code(s): L30.9 - Dermatitis, unspecified - Discharge Information Referrals: PCP,None [Primary Care Provider] - Additional Instructions: The following information is given to patients seen in the emergency department who are being discharged to home. This information is to outline your options for follow-up care. We provide all patients seen in our emergency department with a follow-up referral. The need for follow-up, as well as the timing and circumstances, are variable depending upon the specifics of your emergency department visit. If you don't have a primary care physician on staff, we will provide you with a referral. We always advise you to contact your personal physician following an emergency department visit to inform them of the circumstance of the visit and for follow-up with them and/or the need for any referrals to a consulting specialist. The emergency department will also refer you to a specialist when appropriate. This referral assures that you have the opportunity for follow-up care with a specialist. All of these measure are taken in an effort to provide you with optimal care, which includes your follow-up. Under all circumstances we always encourage you to contact your private physician who remains a resource for coordinating your care. When calling for follow-up care, please make the office aware that this follow-up is from your recent emergency room visit. If for any reason you are refused follow-up, please contact the [facility] Emergency Department at and asked to speak to the emergency department charge nurse. [facility] [address], [place] [address] [facility] [address] [place] [id number] 1. Take medication as prescribed. You can alternate ibuprofen and Tylenol as directed for pain and discomfort. 2. Follow-up with your primary care provider as discussed. Return to the ED as needed and as discussed.
[2019-05-15 12:14] VITALS: BP 114/52; PULSE 97
== END 2019-05-15 11:15 | disposition home or self-care (01) ==
LOC: MW.ED 10:44
DX: L30.9 Dermatitis, unspecified (principal); J45.909 Unspecified asthma, uncomplicated; F17.210 Nicotine dependence, cigarettes, uncomplicated; Z79.51 Long term (current) use of inhaled steroids
CPT/HCPCS: 99282

== ENCOUNTER 2019-05-21 11:26 | Emergency (ER) | payer BC ==
--- NOTE | 2019-05-21 11:44 | EDM.PDOC ---
ED HPI GENERAL MEDICAL PROBLEM - General Chief Complaint: Skin Complaint Stated Complaint: ECZEMA Time Seen by Provider: 05/21/19 11:44 Source of Information: Reports: Patient History Limitations: Reports: No Limitations - History of Present Illness INITIAL COMMENTS - FREE TEXT/NARRATIVE: HISTORY AND PHYSICAL: History of present illness: Patient is a 34-year-old male presents to the ED with complaint of eczema. He is concerned that it is infected. He was seen a couple of weeks ago and given a cream and states it is not getting better. Patient has not seen a provider here , states he has one in [place] that he follows up with. Review of systems: As per history of present illness and below otherwise all systems reviewed and negative. Past medical history: As per history of present illness and as reviewed below otherwise noncontributory. Surgical history: As per history of present illness and as reviewed below otherwise noncontributory. Social history: No reported history of drug or alcohol abuse. Family history: As per history of present illness and as reviewed below otherwise noncontributory. Physical exam: General: Patient sitting comfortably in no acute distress and nontoxic appearing HEENT: Atraumatic, normocephalic, pupils reactive, negative for conjunctival pallor or scleral icterus, mucous membranes moist, throat clear, neck supple, nontender, trachea midline. No meningeal signs. Lungs: Clear to auscultation, breath sounds equal bilaterally, chest nontender. Heart: S1S2, regular, negative for clicks, rubs, or overt murmur. Abdomen: Soft, nondistended, nontender. Negative for masses or hepatosplenomegaly. Negative for costovertebral tenderness. No rigidity, rebound , guarding. Pelvis: Stable nontender. Genitourinary: Deferred. Rectal: Deferred. Extremities: Eczematous rash to the popliteal fossa bilaterally with a couple areas of broken skin. No erythema, warmth or drainage. Atraumatic, negative for cords or calf pain. Neurovascular unremarkable. Neuro: Awake, alert, oriented. Cranial nerves II through XII unremarkable. Cerebellum unremarkable. Motor and sensory unremarkable throughout. Exam nonfocal. Notes: Will cover for infection with keflex although there are no signs of cellulitis at this time. Diagnostics: [] Therapeutics: [] Prescriptions: Keflex Medrol dosepak Impression: eczema Plan: Take medications as instructed Follow up with primary care provider Return to ED as needed as discussed Definitive disposition and diagnosis as appropriate pending reevaluation and review of above. Bilateral Leg Pain Score (Numeric/FACES): 5 - Related Data Allergies Allergy/AdvReac Type Severity Reaction Status Date / Time No Known Allergies Allergy Verified 01/20/19 14:12 Home Meds: Home Meds Albuterol Sulfate [Proair Hfa] 2 puff INH ASDIRECTED PRN 10/20/18 [History] Budesonide/Formoterol [Symbicort 160-4.5 MCG] 1 puff INH DAILY 05/15/19 [History ] cephALEXin [Keflex] 500 mg PO BID 7 Days #14 cap 05/21/19 [Rx] methylPREDNISolone [Medrol] 4 mg PO ASDIRECTED #1 tab.ds.pk 05/21/19 [Rx] Past Medical History - Past Health History Medical/Surgical History: Denies Medical/Surgical History HEENT History: Reports: None Cardiovascular History: Reports: None Respiratory History: Reports: Asthma Gastrointestinal History: Reports: None Genitourinary History: Reports: None Musculoskeletal History: Reports: None Neurological History: Reports: None Psychiatric History: Reports: None Endocrine/Metabolic History: Reports: None Hematologic History: Reports: None Immunologic History: Reports: None Oncologic (Cancer) History: Reports: None Dermatologic History: Reports: Eczema - Infectious Disease History Infectious Disease History: Reports: Chicken Pox - Past Surgical History Head Surgeries/Procedures: Reports: None HEENT Surgical History: Reports: None Cardiovascular Surgical History: Reports: None Respiratory Surgical History: Reports: None GI Surgical History: Reports: None Male Surgical History: Reports: None Endocrine Surgical History: Reports: None Neurological Surgical History: Reports: None Musculoskeletal Surgical History: Reports: None Oncologic Surgical History: Reports: None Social & Family History - Family History Family Medical History: Noncontributory - Caffeine Use Caffeine Use: Reports: Energy Drinks Caffeine Use Comment: 2 bottles ED ROS GENERAL - Review of Systems Review Of Systems: ROS reveals no pertinent complaints other than HPI. ED EXAM, SKIN/RASH Exam: See Below (see dictation) Course - Vital Signs Last Recorded V/S: Last Vital Signs Temp 97.4 F 05/21/19 11:49 Pulse 64 05/21/19 11:49 Resp 20 05/21/19 11:49 BP 120/77 05/21/19 11:49 Pulse Ox 98 05/21/19 11:49 Departure - Departure Time of Disposition: 11:56 Disposition: Home, Self-Care 01 Condition: Good Clinical Impression: Eczema Qualifiers: Eczema type: unspecified Qualified Code(s): L30.9 - Dermatitis, unspecified Cellulitis Qualifiers: Site of cellulitis: extremity Site of cellulitis of extremity: lower extremity Laterality: right Qualified Code(s): L03.115 - Cellulitis of right lower limb - Discharge Information Prescriptions: cephALEXin [Keflex] 500 mg PO BID 7 Days #14 cap methylPREDNISolone [Medrol] 4 mg PO ASDIRECTED #1 tab.ds.pk Referrals: PCP,None [Primary Care Provider] - Forms: ED Department Discharge Additional Instructions: The following information is given to patients seen in the emergency department who are being discharged to home. This information is to outline your options for follow-up care. We provide all patients seen in our emergency department with a follow-up referral. The need for follow-up, as well as the timing and circumstances, are variable depending upon the specifics of your emergency department visit. If you don't have a primary care physician on staff, we will provide you with a referral. We always advise you to contact your personal physician following an emergency department visit to inform them of the circumstance of the visit and for follow-up with them and/or the need for any referrals to a consulting specialist. The emergency department will also refer you to a specialist when appropriate. This referral assures that you have the opportunity for follow-up care with a specialist. All of these measure are taken in an effort to provide you with optimal care, which includes your follow-up. Under all circumstances we always encourage you to contact your private physician who remains a resource for coordinating your care. When calling for follow-up care, please make the office aware that this follow-up is from your recent emergency room visit. If for any reason you are refused follow-up, please contact the [facility] Emergency Department at and asked to speak to the emergency department charge nurse. [facility] [address] [place] [id number] [address] [address] Take medications as instructed Follow up with primary care provider Return to ED as needed as discussed
[2019-05-21 11:56] VITALS: BP 120/77; PULSE 64
== END 2019-05-21 12:16 | disposition home or self-care (01) ==
LOC: MW.ED 11:26
DX: L30.9 Dermatitis, unspecified (principal); L03.115 Cellulitis of right lower limb; J45.909 Unspecified asthma, uncomplicated; Z79.51 Long term (current) use of inhaled steroids
CPT/HCPCS: 99282; 99283

== ENCOUNTER 2019-09-05 08:46 | Emergency (ER) | payer BC ==
[2019-09-05 10:59] LABS: BLOOD UREA NITROGEN,BUN 9 mg/dL (7.0-18.0); CARBON DIOXIDE,CO2 26.8 mmol/L (21.0-32.0); CHLORIDE,CL 107 mmol/L (98-107); GLUCOSE RANDOM 110 mg/dL (74-106); POTASSIUM,K 3.9 mmol/L (3.5-5.1); SODIUM,NA 143 mmol/L (136-148)
--- NOTE | 2019-09-05 11:01 | EDM.PDOC ---
ED HPI GENERAL MEDICAL PROBLEM - General Chief Complaint: Skin Complaint Stated Complaint: BIT IN LT CHEST AREA Time Seen by Provider: 09/05/19 09:52 Source of Information: Reports: Patient History Limitations: Reports: No Limitations - History of Present Illness INITIAL COMMENTS - FREE TEXT/NARRATIVE: HISTORY AND PHYSICAL: History of present illness: Patient is a 34 year old male who presents to the ED today with concern of left nipple irritation and drainage over the past 3 days. Patient states that the nipple itself is not painful but it is irritating when the nipple rubs against his shirt. Patient states he is also noticed a drainage from the nipple. Patient states he is never had this occur before and denies any trauma or injury to the nipple. Patient denies any health history or any other symptoms or concerns. Patient denies fever, chills, chest pain, shortness of breath, or cough. Denies headache, neck stiff ness, change in vision, syncope, or near syncope. Denies nausea, vomiting, abdominal pain, diarrhea, constipation, or dysuria. Has not noted any blood in urine or stool. Patient has been eating and drinking appropriately. Review of systems: As per history of present illness and below otherwise all systems reviewed and negative. Past medical history: As per history of present illness and as reviewed below otherwise noncontributory. Surgical history: As per history of present illness and as reviewed below otherwise noncontributory. Social history: See social history for further information Family history: As per history of present illness and as reviewed below otherwise noncontributory. Physical exam: General: Patient is alert, oriented, and in no acute distress. Patient sitting comfortably on exam table. HEENT: Atraumatic, normocephalic, pupils equal and reactive bilaterally, negative for conjunctival pallor or scleral icterus, mucous membranes moist, TMs normal bilaterally, throat clear, neck supple, nontender, trachea midline. No drooling or trismus noted. No meningeal signs. No hot potato voice noted. Lungs: Clear to auscultation, breath sounds equal bilaterally, chest nontender. Heart: S1S2, regular rate and rhythm without overt murmur Breast: The left nipple is slightly more erythematous then the right with clear drainage surrounding the nipple. Unable to express drainage from the nipple itself. Not warm to the touch and non-tender. No obvious underlying mass or abscess of the left breast. The right breast is without masses, tenderness or nipple drainage. Abdomen: Soft, nondistended, nontender. Negative for masses or hepatosplenomegaly. Negative for costovertebral tenderness. Pelvis: Stable nontender. Genitourinary: Deferred. Rectal: Deferred. Skin: Intact, warm, dry. No lesions or rashes noted. Extremities: Atraumatic, negative for cords or calf pain. Neurovascular unremarkable. Neuro: Awake, alert, oriented. Cranial nerves II through XII unremarkable. Cerebellum unremarkable. Motor and sensory unremarkable throughout. Exam nonfocal. Notes: Discussed importance for follow-up with a primary care provider as well as general surgery. Voices understanding and is agreeable to plan of care. Denies any further questions or concerns at this time. Diagnostics: CBC, CMP, TSH, Prolactin, Breast US Therapeutics: None Prescription: Bactrim DS Impression: Left nipple discharge Left nipple inflammation Plan: 1. Take medication as prescribed. You can alternate ibuprofen and Tylenol as directed for pain and discomfort. 2. Follow-up with a primary care provider as well as general surgery as discussed. Return to the ED as needed and as discussed. Definitive disposition and diagnosis as appropriate pending reevaluation and review of above. - Related Data Allergies Allergy/AdvReac Type Severity Reaction Status Date / Time No Known Allergies Allergy Verified 09/05/19 09:07 Home Meds: Home Meds Sulfamethoxazole/Trimethoprim [Bactrim Ds Tablet] 1 each PO BID #20 tablet 09/05 [Rx] Past Medical History - Past Health History Medical/Surgical History: Denies Medical/Surgical History HEENT History: Reports: None Cardiovascular History: Reports: None Respiratory History: Reports: Asthma Gastrointestinal History: Reports: None Genitourinary History: Reports: None Musculoskeletal History: Reports: None Neurological History: Reports: None Psychiatric History: Reports: None Endocrine/Metabolic History: Reports: None Hematologic History: Reports: None Immunologic History: Reports: None Oncologic (Cancer) History: Reports: None Dermatologic History: Reports: Eczema - Infectious Disease History Infectious Disease History: Reports: Chicken Pox - Past Surgical History Head Surgeries/Procedures: Reports: None HEENT Surgical History: Reports: None Cardiovascular Surgical History: Reports: None Respiratory Surgical History: Reports: None GI Surgical History: Reports: None Male Surgical History: Reports: None Endocrine Surgical History: Reports: None Neurological Surgical History: Reports: None Musculoskeletal Surgical History: Reports: None Oncologic Surgical History: Reports: None Social & Family History - Family History Family Medical History: Noncontributory - Tobacco Use Smoking Status *Q: Current Some Day Smoker Years of Tobacco use: 5 Packs/Tins Daily: 0.2 - Caffeine Use Caffeine Use: Reports: None Caffeine Use Comment: 2 bottles - Recreational Drug Use Recreational Drug Use: No ED ROS GENERAL - Review of Systems Review Of Systems: Comprehensive ROS is negative, except as noted in HPI. ED EXAM, SKIN/RASH Exam: See Below (see dictation) Course - Vital Signs Last Recorded V/S: Last Vital Signs Temp 97.8 F 09/05/19 12:52 Pulse 83 09/05/19 12:52 Resp 16 09/05/19 12:52 BP 120/84 09/05/19 12:52 Pulse Ox 97 09/05/19 12:52 - Orders/Labs/Meds Labs: Laboratory Tests 09/05/19 09/05/19 Range/Units 10:16 10:16 WBC 5.62 (4.0-11.0) K/uL RBC 5.31 (4.50-5.90) M/uL Hgb 16.1 (13.0-17.0) g/dL Hct 48.0 (38.0-50.0) % MCV 90.4 (80.0-98.0) fL MCH 30.3 (27.0-32.0) pg MCHC 33.5 (31.0-37.0) g/dL RDW Std Deviation 48.2 (28.0-62.0) fl RDW Coeff of Rachael 15 (11.0-15.0) % Plt Count 183 (150-400) K/uL MPV 11.10 (7.40-12.00) fL Neut % (Auto) 57.4 (48.0-80.0) % Lymph % (Auto) 30.8 (16.0-40.0) % [place] % (Auto) 6.4 (0.0-15.0) % Eos % (Auto) 5.0 (0.0-7.0) % Baso % (Auto) 0.4 (0.0-1.5) % Neut # (Auto) 3.2 (1.4-5.7) K/uL Lymph # (Auto) 1.7 (0.6-2.4) K/uL [place] # (Auto) 0.4 (0.0-0.8) K/uL Eos # (Auto) 0.3 (0.0-0.7) K/uL Baso # (Auto) 0.0 (0.0-0.1) K/uL Nucleated RBC % 0.0 /100WBC Nucleated RBCs # 0 K/uL Sodium 143 (136-148) mmol/L Potassium 3.9 (3.5-5.1) mmol/L Chloride 107 (98-107) mmol/L Carbon Dioxide 26.8 (21.0-32.0) mmol/L BUN 9 (7.0-18.0) mg/dL Creatinine 1.0 (0.8-1.3) mg/dL Est Cr Clr Drug Dosing 99.75 mL/min Estimated GFR (MDRD) > 60.0 ml/min Glucose 110 H (74-106) mg/dL Calcium 9.0 (8.5-10.1) mg/dL Total Bilirubin 0.3 (0.2-1.0) mg/dL AST 23 (15-37) IU/L ALT 42 (14-63) IU/L Alkaline Phosphatase 75 (46-116) U/L Total Protein 7.6 (6.4-8.2) g/dL Albumin 3.8 (3.4-5.0) g/dL Globulin 3.8 (2.6-4.0) g/dL Albumin/Globulin Ratio 1.0 (0.9-1.6) TSH 3rd Generation 0.98 (0.36-3.74) uIU/mL Prolactin 3.3 ng/mL Departure - Departure Time of Disposition: 13:40 Disposition: Home, Self-Care 01 Clinical Impression: Discharge from left nipple, Nipple inflammation - Discharge Information Prescriptions: Sulfamethoxazole/Trimethoprim [Bactrim Ds Tablet] 1 each PO BID #20 tablet Instructions: Galactorrhea, [id number] Referrals: PCP,None [Primary Care Provider] - Forms: ED Department Discharge Additional Instructions: The following information is given to patients seen in the emergency department who are being discharged to home. This information is to outline your options for follow-up care. We provide all patients seen in our emergency department with a follow-up referral. The need for follow-up, as well as the timing and circumstances, are variable depending upon the specifics of your emergency department visit. If you don't have a primary care physician on staff, we will provide you with a referral. We always advise you to contact your personal physician following an emergency department visit to inform them of the circumstance of the visit and for follow-up with them and/or the need for any referrals to a consulting specialist. The emergency department will also refer you to a specialist when appropriate. This referral assures that you have the opportunity for follow-up care with a specialist. All of these measure are taken in an effort to provide you with optimal care, which includes your follow-up. Under all circumstances we always encourage you to contact your private physician who remains a resource for coordinating your care. When calling for follow-up care, please make the office aware that this follow-up is from your recent emergency room visit. If for any reason you are refused follow-up, please contact the [facility] Emergency Department at and asked to speak to the emergency department charge nurse. [facility] [address] [place], [place] [id number] [address] [address] [facility] Special[facility] - General Surgery, [facility] [address] [place] [address], [address] [place] [address] 1. Take medication as prescribed. You can alternate ibuprofen and Tylenol as directed for pain and discomfort. 2. Follow-up with a primary care provider as well as general surgery as discussed. Call the clinic in the morning to establish an appointment time. Return to the ED as needed and as discussed. Sepsis Event Note - Evaluation Sepsis Screening Result: No Definite Risk - Focused Exam Vital Signs: Vital Signs Temp Pulse Resp BP Pulse Ox 09/05/19 12:52 97.8 F 83 16 120/84 97 02/16/20 11:38 97.3 F 76 16 129/85 96 09/05/19 09:31 96.9 F 74 20 131/60 09/05/19 09:06 98.1 F 80 18 120/83 98 Date Exam was Performed: 09/05/19 Time Exam was Performed: 13:40
--- NOTE | 2019-09-05 12:58 | US ---
Left breast ultrasound: Multiple real-time images of the left breast were obtained. Images were also obtained with a standoff pad. No cyst or solid finding is seen. No edematous change is seen. Impression: 1. No ultrasound abnormality is identified within the central left breast around the nipple. Diagnostic code #1 This report was dictated in Mountain Standard Time
[2019-09-05 12:59] VITALS: BP 120/84; PULSE 83
== END 2019-09-05 12:52 | disposition home or self-care (01) ==
LOC: MW.ED 08:46
DX: N64.52 Nipple discharge (principal); N61.0 Mastitis without abscess; F17.210 Nicotine dependence, cigarettes, uncomplicated
CPT/HCPCS: 36415; 76642-LT; 76642-LT-26; 80053; 84146; 84443; 85025; 99284-25

== ENCOUNTER 2019-11-27 18:43 | Emergency (ER) | payer BC ==
--- NOTE | 2019-11-27 20:26 | EDM.PDOC ---
ED HPI GENERAL MEDICAL PROBLEM - General Chief Complaint: Asthma Stated Complaint: ASTHMA Time Seen by Provider: 11/27/19 20:23 Source of Information: Reports: Patient History Limitations: Reports: No Limitations - History of Present Illness INITIAL COMMENTS - FREE TEXT/NARRATIVE: HISTORY AND PHYSICAL: History of present illness: Patient is a 34-year-old male presents to the ED for medical refill. Patient reports history of asthma, states he ran out of his symbicort this morning. Uses it twice daily. Does not have a rescue inhaler. Has not followed up with PCP here, has one in [place]. Denies cough, chest pain, shortness of breath, fevers, or chills. Review of systems: As per history of present illness and below otherwise all systems reviewed and negative. Past medical history: As per history of present illness and as reviewed below otherwise noncontributory. Surgical history: As per history of present illness and as reviewed below otherwise noncontributory. Social history: No reported history of drug or alcohol abuse. Family history: As per history of present illness and as reviewed below otherwise noncontributory. Physical exam: General: Patient sitting comfortably in no acute distress and nontoxic appearing HEENT: Atraumatic, normocephalic, pupils reactive, negative for conjunctival pallor or scleral icterus, mucous membranes moist, throat clear, neck supple, nontender, trachea midline. No meningeal signs. Lungs: Clear to auscultation, breath sounds equal bilaterally, chest nontender. Heart: S1S2, regular, negative for clicks, rubs, or overt murmur. Abdomen: Soft, nondistended, nontender. Negative for masses or hepatosplenomegaly. Negative for costovertebral tenderness. No rigidity, rebound , guarding. Pelvis: Stable nontender. Genitourinary: Deferred. Rectal: Deferred. Extremities: Atraumatic, negative for cords or calf pain. Neurovascular unremarkable. Neuro: Awake, alert, oriented. Cranial nerves II through XII unremarkable. Cerebellum unremarkable. Motor and sensory unremarkable throughout. Exam nonfocal. Notes: Diagnostics: none Therapeutics: none Prescriptions: Symbicort inhaler ventolin inhaler Impression: medical refill, history of asthma Definitive disposition and diagnosis as appropriate pending reevaluation and review of above. - Related Data Allergies Allergy/AdvReac Type Severity Reaction Status Date / Time No Known Allergies Allergy Verified 09/05/19 09:07 Home Meds: Home Meds Sulfamethoxazole/Trimethoprim [Bactrim Ds Tablet] 1 each PO BID #20 tablet 09/05 [Rx] Past Medical History - Past Health History Medical/Surgical History: Denies Medical/Surgical History HEENT History: Reports: None Cardiovascular History: Reports: None Respiratory History: Reports: Asthma Gastrointestinal History: Reports: None Genitourinary History: Reports: None Musculoskeletal History: Reports: None Neurological History: Reports: None Psychiatric History: Reports: None Endocrine/Metabolic History: Reports: None Hematologic History: Reports: None Immunologic History: Reports: None Oncologic (Cancer) History: Reports: None Dermatologic History: Reports: Eczema - Infectious Disease History Infectious Disease History: Reports: Chicken Pox - Past Surgical History Head Surgeries/Procedures: Reports: None HEENT Surgical History: Reports: None Cardiovascular Surgical History: Reports: None Respiratory Surgical History: Reports: None GI Surgical History: Reports: None Male Surgical History: Reports: None Endocrine Surgical History: Reports: None Neurological Surgical History: Reports: None Musculoskeletal Surgical History: Reports: None Oncologic Surgical History: Reports: None Social & Family History - Family History Family Medical History: Noncontributory - Caffeine Use Caffeine Use: Reports: None Caffeine Use Comment: 2 bottles ED ROS GENERAL - Review of Systems Review Of Systems: Comprehensive ROS is negative, except as noted in HPI. ED EXAM, GENERAL - Physical Exam Exam: See Below (see dictation) Departure - Departure Time of Disposition: 20:26 Disposition: Home, Self-Care 01 Condition: Good Clinical Impression: Medication refill, History of asthma Clinical Impression: (Ruled Out): History of asthma requiring an overnight hospital stay within past 2 years - Discharge Information Referrals: PCP,None [Primary Care Provider] - Forms: ED Department Discharge Additional Instructions: discharge instructions given during downtime on paper charts
[2019-11-27 21:36] VITALS: BP 123/53; PULSE 96
== END 2019-11-27 19:30 | disposition home or self-care (01) ==
LOC: MW.ED 18:43
DX: J45.909 Unspecified asthma, uncomplicated (principal); Z76.0 Encounter for issue of repeat prescription
CPT/HCPCS: 99281; 99282

== ENCOUNTER 2021-04-11 20:21 | Emergency (ER) | payer SELFPAY ==
[2021-04-11 20:35] VITALS: BP 118/84; PULSE 84
--- NOTE | 2021-04-11 20:55 | EDM.PDOC ---
ED HPI GENERAL MEDICAL PROBLEM - General Chief Complaint: Skin Complaint Stated Complaint: ECZEMA Time Seen by Provider: 04/11/21 20:28 Source of Information: Reports: Patient History Limitations: Reports: No Limitations - History of Present Illness INITIAL COMMENTS - FREE TEXT/NARRATIVE: Patient is a 36-year-old male with a history of eczema he presents today for increased itchy most of his lower extremities and arms. Patient states he is in no [place] for work and did not bring any of his cream with him. States that he normally takes triamcinolone but does not have any with him. He denies any weeping this of the skin any nausea vomiting fever chills or any other systemic symptoms. - Related Data Allergies Allergy/AdvReac Type Severity Reaction Status Date / Time No Known Allergies Allergy Verified 11/27/19 21:30 Home Meds: Home Meds Albuterol [Ventolin HFA] 8 gm INH ASDIRECTED 11/27/19 [History] Past Medical History - Past Health History Medical/Surgical History: Denies Medical/Surgical History HEENT History: Reports: None Cardiovascular History: Reports: None Respiratory History: Reports: Asthma Gastrointestinal History: Reports: None Genitourinary History: Reports: None Musculoskeletal History: Reports: None Neurological History: Reports: None Psychiatric History: Reports: None Endocrine/Metabolic History: Reports: None Hematologic History: Reports: None Immunologic History: Reports: None Oncologic (Cancer) History: Reports: None Dermatologic History: Reports: Eczema - Infectious Disease History Infectious Disease History: Reports: Chicken Pox - Past Surgical History Head Surgeries/Procedures: Reports: None HEENT Surgical History: Reports: None Cardiovascular Surgical History: Reports: None Respiratory Surgical History: Reports: None GI Surgical History: Reports: None Male Surgical History: Reports: None Endocrine Surgical History: Reports: None Neurological Surgical History: Reports: None Musculoskeletal Surgical History: Reports: None Oncologic Surgical History: Reports: None Dermatological Surgical History: Reports: None Social & Family History - Family History Family Medical History: No Pertinent Family History - Caffeine Use Caffeine Use: Reports: Coffee Caffeine Use Comment: 2 bottles - Recreational Drug Use Recreational Drug Use: No ED ROS GENERAL - Review of Systems Review Of Systems: See Below Constitutional: Reports: No Symptoms HEENT: Reports: No Symptoms Respiratory: Reports: No Symptoms Cardiovascular: Reports: No Symptoms Endocrine: Reports: No Symptoms GI/Abdominal: Reports: No Symptoms : Reports: No Symptoms Musculoskeletal: Reports: No Symptoms Skin: Reports: Dryness, Pruritis Neurological: Reports: No Symptoms Psychiatric: Reports: No Symptoms Hematologic/Lymphatic: Reports: No Symptoms Immunologic: Reports: No Symptoms ED EXAM, SKIN/RASH Exam: See Below Exam Limited By: No Limitations General Appearance: Alert, WD/WN, No Apparent Distress Eye Exam: Bilateral Eye: EOMI, PERRL Respiratory/Chest: No Respiratory Distress Cardiovascular: Normal Peripheral Pulses GI/Abdominal: Normal Bowel Sounds Skin: Dry, Rash (Eczema-like rash) Course - Vital Signs Last Recorded V/S: Last Vital Signs Temp 98.1 F 04/11/21 20:32 Pulse 84 04/11/21 20:32 Resp 17 04/11/21 20:32 BP 118/84 04/11/21 20:32 Pulse Ox 97 04/11/21 20:32 Departure - Departure Time of Disposition: 20:54 Disposition: Home, Self-Care 01 Condition: Good Clinical Impression: Chronic eczema - Discharge Information *PRESCRIPTION DRUG MONITORING PROGRAM REVIEWED*: Not Applicable *COPY OF PRESCRIPTION DRUG MONITORING REPORT IN PATIENT CONCETTA: Not Applicable Instructions: Eczema Referrals: PCP,None [Primary Care Provider] - Additional Instructions: The following information is given to patients seen in the emergency department who are being discharged to home. This information is to outline your options for follow-up care. We provide all patients seen in our emergency department with a follow-up referral. The need for follow-up, as well as the timing and circumstances, are variable depending upon the specifics of your emergency department visit. If you don't have a primary care physician on staff, we will provide you with a referral. We always advise you to contact your personal physician following an emergency department visit to inform them of the circumstance of the visit and for follow-up with them and/or the need for any referrals to a consulting specialist. The emergency department will also refer you to a specialist when appropriate. This referral assures that you have the opportunity for follow-up care with a specialist. All of these measure are taken in an effort to provide you with optimal care, which includes your follow-up. Under all circumstances we always encourage you to contact your private physician who remains a resource for coordinating your care. When calling for follow-up care, please make the office aware that this follow-up is from your recent emergency room visit. If for any reason you are refused follow-up, please contact the Emergency Department at and asked to speak to the emergency department charge nurse. Please follow up with your primary care physician. If you do not have a primary care physician, see below: [facility] [address] [place] [address] [facility] [address] [place] [address] You are seen today for increased itchiness likely related to your chronic eczema. We we will send you home with steroid cream that you can apply to help out with your symptoms. Above is the number to your primary care physicians you can also follow-up with for more consistent follow-up while you are in town. If you have any other concerning signs or symptoms please go to the ED. Sepsis Event Note (ED) - Focused Exam Vital Signs: Vital Signs Temp Pulse Resp BP Pulse Ox 04/11/21 20:32 98.1 F 84 17 118/84 97 - Assessment/Plan Plan: Patient is a 36-year-old male presents today for itchiness. Patient has history of eczema and recently moved here for work did not bring any of his prescriptions with him. We will prescribe patient with topical steroids and have patient follow-up with PMD as needed.
== END 2021-04-11 21:07 | disposition home or self-care (01) ==
LOC: MW.ED 20:21
DX: L30.9 Dermatitis, unspecified (principal); J45.909 Unspecified asthma, uncomplicated
CPT/HCPCS: 99282

== ENCOUNTER 2021-06-17 11:33 | Emergency (ER) | payer SELFPAY ==
--- NOTE | 2021-06-17 12:06 | EDM.PDOC ---
ED HPI GENERAL MEDICAL PROBLEM - General Chief Complaint: Skin Complaint Stated Complaint: SKIN IRRITATION Time Seen by Provider: 06/17/21 11:36 Source of Information: Reports: Patient History Limitations: Reports: No Limitations - History of Present Illness INITIAL COMMENTS - FREE TEXT/NARRATIVE: Patient is a 36-year-old male with a history of asthma. Patient frequently comes to ED for medication refill. He works here in town and lives elsewhere and is why he has difficulty following up. States that he has issues of his camp no fever chills no painful to the skin as well. He has no other associated symptoms just here for a medication refill. - Related Data Allergies Allergy/AdvReac Type Severity Reaction Status Date / Time No Known Allergies Allergy Verified 06/17/21 11:40 Home Meds: Home Meds Albuterol [Ventolin HFA] 8 gm INH ASDIRECTED 11/27/19 [History] Triamcinolone Acetonide [Triamcinolone Acetonide 0.5% Oint] 1 film .XX DAILY 14 Days #1 tube 04/11/21 [Rx] Triamcinolone Acetonide [Triamcinolone Acetonide 0.1% Oint] 453.6 gm .XX DAILY 7 Days #1 gm 06/17/21 [Rx] Past Medical History - Past Health History Medical/Surgical History: Denies Medical/Surgical History HEENT History: Reports: None Cardiovascular History: Reports: None Respiratory History: Reports: Asthma Gastrointestinal History: Reports: None Genitourinary History: Reports: None Musculoskeletal History: Reports: None Neurological History: Reports: None Psychiatric History: Reports: None Endocrine/Metabolic History: Reports: None Hematologic History: Reports: None Immunologic History: Reports: None Oncologic (Cancer) History: Reports: None Dermatologic History: Reports: Eczema - Infectious Disease History Infectious Disease History: Reports: Chicken Pox - Past Surgical History Head Surgeries/Procedures: Reports: None HEENT Surgical History: Reports: None Cardiovascular Surgical History: Reports: None Respiratory Surgical History: Reports: None GI Surgical History: Reports: None Male Surgical History: Reports: None Endocrine Surgical History: Reports: None Neurological Surgical History: Reports: None Musculoskeletal Surgical History: Reports: None Oncologic Surgical History: Reports: None Dermatological Surgical History: Reports: None Social & Family History - Family History Family Medical History: No Pertinent Family History - Tobacco Use Tobacco Use Status *Q: Current Some Day Tobacco User Years of Tobacco use: 15 Packs/Tins Daily: 1 - Caffeine Use Caffeine Use: Reports: Coffee Caffeine Use Comment: 2 bottles - Recreational Drug Use Recreational Drug Use: No ED ROS GENERAL - Review of Systems Review Of Systems: See Below Constitutional: Reports: No Symptoms HEENT: Reports: No Symptoms Respiratory: Reports: No Symptoms Cardiovascular: Reports: No Symptoms Endocrine: Reports: No Symptoms GI/Abdominal: Reports: No Symptoms : Reports: No Symptoms Musculoskeletal: Reports: No Symptoms Skin: Reports: Pruritis Neurological: Reports: No Symptoms Psychiatric: Reports: No Symptoms Hematologic/Lymphatic: Reports: No Symptoms Immunologic: Reports: No Symptoms ED EXAM, SKIN/RASH Exam: See Below Exam Limited By: No Limitations General Appearance: Alert, WD/WN, No Apparent Distress Head: Atraumatic, Normocephalic Neck: Normal Inspection, Supple, Non-Tender Respiratory/Chest: No Respiratory Distress, Lungs Clear, Normal Breath Sounds Cardiovascular: Normal Peripheral Pulses, Regular Rate, Rhythm GI/Abdominal: Normal Bowel Sounds, Soft, Non-Tender Neurological: Alert, Oriented Skin: Dry, Intact, Excoriations Course - Vital Signs Last Recorded V/S: Last Vital Signs Temp 97.7 F 06/17/21 11:41 Pulse 96 06/17/21 11:41 Resp 16 06/17/21 11:41 BP 128/75 06/17/21 11:41 Pulse Ox 98 06/17/21 11:41 Departure - Departure Time of Disposition: 12:04 Disposition: Home, Self-Care 01 Condition: Good Clinical Impression: Eczema - Discharge Information *PRESCRIPTION DRUG MONITORING PROGRAM REVIEWED*: Not Applicable *COPY OF PRESCRIPTION DRUG MONITORING REPORT IN PATIENT CONCETTA: Not Applicable Prescriptions: Triamcinolone Acetonide [Triamcinolone Acetonide 0.1% Oint] 453.6 gm .XX DAILY 7 Days #1 gm Instructions: Eczema Referrals: PCP,None [Primary Care Provider] - Additional Instructions: You are seen today for medication refills as you have a history of eczema and your skin estimation is we sent your prescription to the pharmacy that you can order picker/assembler. We once again once I supported you following up with your primary care physician or boiler house mechanic to get a better control of this. If you have any other concerning signs or symptoms please return to the ED immediately. The following information is given to patients seen in the emergency department who are being discharged to home. This information is to outline your options for follow-up care. We provide all patients seen in our emergency department with a follow-up referral. The need for follow-up, as well as the timing and circumstances, are variable depending upon the specifics of your emergency department visit. If you don't have a primary care physician on staff, we will provide you with a referral. We always advise you to contact your personal physician following an emergency department visit to inform them of the circumstance of the visit and for follow-up with them and/or the need for any referrals to a consulting specialist. The emergency department will also refer you to a specialist when appropriate. This referral assures that you have the opportunity for follow-up care with a specialist. All of these measure are taken in an effort to provide you with optimal care, which includes your follow-up. Under all circumstances we always encourage you to contact your private physician who remains a resource for coordinating your care. When calling for follow-up care, please make the office aware that this follow-up is from your re cent emergency room visit. If for any reason you are refused follow-up, please contact the [facility] Emergency Department at and asked to speak to the emergency department charge nurse. Please follow up with your primary care physician. If you do not have a primary care physician, see below: Dr. Finn Medina [facility] [address] [place] [address], [address] [place] [address] Sepsis Event Note (ED) - Evaluation Sepsis Screening Result: No Definite Risk - Focused Exam Vital Signs: Vital Signs Temp Pulse Resp BP Pulse Ox 06/17/21 11:41 97.7 F 96 16 128/75 98 - Assessment/Plan Plan: Patient is a 36-year-old male presents today for medication refill. Patient has history of asthma and has some itchy skin that is dry as well. No signs of any infection of the skin. We will send patient home with a topical steroid cream and instructed patient again follow-up with dermatology.
[2021-06-17 12:16] VITALS: BP 134/66; PULSE 92
== END 2021-06-17 12:17 | disposition home or self-care (01) ==
LOC: MW.ED 11:33
DX: L30.9 Dermatitis, unspecified (principal); J45.909 Unspecified asthma, uncomplicated; Z72.0 Tobacco use
CPT/HCPCS: 99282

== ENCOUNTER 2021-08-10 11:44 | Emergency (ER) | payer SELFPAY ==
[2021-08-10 12:43] VITALS: BP 120/81; PULSE 85
== END 2021-08-10 12:44 | disposition home or self-care (01) ==
LOC: MW.ED 11:44
DX: J45.909 Unspecified asthma, uncomplicated (principal); Z76.0 Encounter for issue of repeat prescription
CPT/HCPCS: 99281

== ENCOUNTER 2021-11-17 14:41 | Emergency (ER) | payer SELFPAY ==
[2021-11-17 14:53] VITALS: BP 139/74; PULSE 87
== END 2021-11-17 15:13 | disposition home or self-care (01) ==
LOC: MW.ED 14:41
DX: J45.909 Unspecified asthma, uncomplicated (principal); Z76.0 Encounter for issue of repeat prescription
CPT/HCPCS: 99284

== ENCOUNTER 2022-02-10 15:22 | Emergency (ER) | payer SELFPAY ==
[2022-02-10 15:40] VITALS: BP 135/81; PULSE 98
== END 2022-02-10 15:47 | disposition home or self-care (01) ==
LOC: MW.ED 15:22
DX: J45.901 Unspecified asthma with (acute) exacerbation (principal); Z79.899 Other long term (current) drug therapy
CPT/HCPCS: 99281; 99282